=== PATIENT | male | born 1970 ===

== ENCOUNTER 2021-08-02 09:51 | Outpatient (REF) | payer OTHER, SELFPAY ==
[2021-08-02 10:21] LABS: MANUAL DIFF FLAG NO
[2021-08-02 10:44] LABS: Basophils Absolute Auto 0.1 X10*3/uL (0.0-0.2); Basophils Percent Auto 0.7 % (0-2); Eosinophils Absolute Auto 0.4 X10*3/uL (0.0-0.4); Eosinophils Percent Auto 4.5 % (0-4); Hematocrit 49.8 % (42.0-52.0); Hemoglobin 16.8 g/dl (14.0-18.0); Imm Gran Abs Auto 0.09 X10*3/uL (0.00-0.03); Lymphocytes Absolute Auto 2.1 X10*3/uL (1.2-4.9); Lymphocytes Percent Auto 23.1 % (20-40); Mean Corpuscular HGB Conc 33.7 g/dl (31.0-36.0); Mean Corpuscular Hemoglobin 31.2 pg (27.0-33.0); Mean Corpuscular Volume 92.6 fL (80.0-98.0); Mean Platelet Volume 10.9 fL (9.4-12.4); Monocytes Absolute Auto 0.8 X10*3/uL (0.1-1.2); Monocytes Percent Auto 8.6 % (2-11); Neutrophils Absolute Auto 5.5 x10*3/uL (2.0-8.3); Neutrophils Percent Auto 62.1 % (45-73); Platelet Count 191 X10*3/uL (160-400); Red Blood Count 5.38 X10*6/uL (4.60-5.80); Red Cell Distribution Width 12.9 % (11.0-16.0); White Blood Count 8.9 X10*3/uL (4.8-10.8)
[2021-08-02 10:57] LABS: Estimated Average Glucose 114 mg/dL; Hemoglobin A1C 164.8663 umol/L; Hemoglobin A1c % 5.6 %
[2021-08-02 11:08] LABS: Anion Gap 11 (12-20); Blood Urea Nitrogen 14 mg/dL (9-16); Calcium 9.8 mg/dL (8.4-10.2); Carbon Dioxide 29 mmol/L (22-29); Chloride 103 mmol/L (96-108); Cholesterol 230 mg/dL; Estimated Glomerular Filt Rate > 60; Glucose Fasting 102 mg/dL (60-99); HDL Cholesterol 45 mg/dL; LDL Cholesterol Calculated 131 mg/dl; Potassium 4.7 mmol/L (3.3-5.1); Sodium 138 mmol/L (135-145); Triglycerides 273 mg/dL
[2021-08-02 11:32] LABS: Prostate Specific Antigen Scr 0.29 ng/mL (<0.05-4.0); TSH reflex Free T4 1.16 uIU/mL (0.32-4.0)
[2021-08-02 11:40] LABS: Folate > 20.0 ng/mL (> or = 4.0); Vitamin B12 965 pg/mL (200-900)
[2021-08-07 13:13] LABS: Vitamin D 25-OH, D2 <4 ng/mL; Vitamin D 25-OH, D3 18 ng/mL; Vitamin D 25-OH, Total 18 ng/mL (30-100)
[2021-08-07 17:36] LABS: Testosterone, Free 59.3 pg/mL (35.0-155.0); Testosterone, Total 385 ng/dL (250-1100)
== END 2021-08-02 09:52 | disposition home or self-care (01) ==
LOC: HO.LAB 09:51
PROVIDERS: PCP Nurse Practitioner Acute Care; Visit Provider Nurse Practitioner Acute Care
DX: Z12.5 Encounter for screening for malignant neoplasm of prostate (principal); E29.1 Testicular hypofunction
CPT/HCPCS: 36415; 80048; 80061; 82306; 82607; 82746; 83036; 84153; 84402; 84403; 84443; 85025

== ENCOUNTER 2021-10-24 10:07 | Outpatient (REF) | payer OTHER, SELFPAY ==
--- NOTE | ~2021-10-24 | XR_ITS ---
EXAMINATION: XR LUMBOSACRAL SPINE WITH OBLIQUES CLINICAL INFORMATION: Low back pain COMPARISON: None TECHNIQUE: AP, both oblique, and lateral views of the lumbar spine. Lateral view of the lumbosacral junction. FINDINGS: Bone alignment is normal. No fracture or dislocation is seen. There is mild degenerative disc disease at L1-L2. Disc spaces are otherwise normal. There is lower lumbar spine facet arthritis. No pars defect is seen. XR/XR lumbar spine 6V w bending IMPRESSION: Mild degenerative disc disease at L1-L2 and lower lumbar spine facet arthritis.
--- NOTE | 2021-10-24 10:13 | ECG_ITS ---
Test Reason : CHEST PAIN Blood Pressure : / mmHG Vent. Rate : 065 BPM Atrial Rate : 065 BPM P-R Int : 164 ms QRS Dur : 094 ms QT Int : 418 ms P-R-T Axes : 043 -01 016 degrees QTc Int : 434 ms Normal sinus rhythm Inferior infarct , age undetermined Abnormal ECG No previous ECGs available Referred By: Tanna Lopez Electronically Signed By:Irving Charles
== END 2021-10-24 10:08 | disposition home or self-care (01) ==
LOC: HO.XRAY 10:07
PROVIDERS: Absent Provider Nurse Practitioner Family; PCP Nurse Practitioner Acute Care; Visit Provider Nurse Practitioner Acute Care
DX: R07.9 Chest pain, unspecified (principal); M54.50 Low back pain, unspecified; M79.606 Pain in leg, unspecified
CPT/HCPCS: 72114; 93005

== ENCOUNTER → 2021-11-28 09:07 | Outpatient (REF) | payer OTHER, SELFPAY ==
--- NOTE | 2021-11-28 09:14 | CA_ITS ---
Acquisition Time: 2021-11-28 09:28:18 Total Exercise Time: 00:08:14 Test Indications: Chest Pain Medications: SEE H Protocol: MT Max HR: 148 BPM 87% of Pred: 170 BPM Max BP: 182/078 mmHG Max Work Load: 10.1 METS Exercise stress test with exercise 8 min 14 sec of Mt protocol, achieving 87% MPHR, 10.1 METs, with mild sob, no chest discomfort, with isolated PACs, with normotensive response to exercise, without EKG changes meeting criteria for ischemia. Test reviewed with Dr Gentile. Referred By: Tanna Lopez Overread By: FRIDA AYERS
== END ==
LOC: HO.CARD 09:07
PROVIDERS: PCP Nurse Practitioner Acute Care; Visit Provider Nurse Practitioner Family
DX: R07.9 Chest pain, unspecified (principal)
CPT/HCPCS: 93017

== ENCOUNTER → 2021-12-06 14:38 | Outpatient (REF) | payer OTHER, SELFPAY ==
--- NOTE | 2021-12-06 14:40 | CA_ITS ---
Transthoracic Echocardiogram Patient (Last, First, Middle): Ambrose Leslie, Gender: Male Date of : 1970 Age: 51 Procedure Date: 12/06/2021 Procedure Type: Transthoracic Echocardiogram Location: OP Height: 170.18 cm Weight: 100.25 kg BSA: 2.11 m2 Heart Rate: bpm BP: 134 / 72 mmHg Mill Work: SREEDHAR Chiu MD: Tanna TROY Home Planning Consultant Salesperson: Fabian Suárez MD Symptoms: R07.9 - Chest pain, unspecified Study Quality: Fair ECG Rhythm: Sinus Conclusions: - Essentially normal study Findings Left Ventricle Normal left ventricular size, thickness, and systolic function. The visually estimated ejection fraction is between 60-65%. Spectral Doppler is indicative of a normal filling pattern. Right Ventricle Normal right ventricular cavity size and systolic function. Atria Both atria are normal in size. There is no evidence of interatrial shunt. Aortic Valve Normal aortic valve structure and function. There is no aortic valve stenosis. There is no aortic valve regurgitation. Mitral Valve Normal mitral valve structure and function. There is trace mitral valve regurgitation. There is no mitral valve stenosis. Pulmonic Valve The pulmonic valve is likely normal. Tricuspid Valve Normal tricuspid valve structure. There is trace tricuspid valve regurgitation. The right ventricular systolic pressure is normal. The right ventricular systolic pressure is 21 mmHg. Normal right atrial pressure. There is no evidence of pulmonary hypertension. Great Vessels All visible segments of the aorta are normal in size. The pulmonary artery was not well visualized. Venous The inferior vena cava is normal in size and collapses greater than 50% with inspiration. Pericardium/Pleural There is no evidence of pericardial effusion. Prior Study Comparison No prior study available for comparison. Measurements 2D Linear Measurements IVSd: 1.04 0.6-0.9/0.6-1.0 cm LVIDd: 4.75 3.9-5.3/4.2-5.9 cm LVIDd Index: 2.25 2.4-3.2/2.2-3.1 cm/m2 LVIDs: 2.83 2.0-3.6 cm LVPWd: 1.01 0.7-1.1 cm LA Diam: 3.10 2.7-3.8/3.0-4.0 cm LAIDs Index: 1.47 1.5-2.3 cm/m2 LV Mass: 215.55 67-162/88-224 g LV Mass Index: 102.16 43-95/49-115 g/m2 LVOT Diam: 2.20 3.0+(-)1.3 cm 2D Systolic Function EF 4C: 67.10 >55% EF 2C: 62.40 >55% EF BiP: 65.80 >55% Mitral Valve MV Pk E: 0.69 MV PK A: 0.63 MV Decel Time: 302.00 E/A: 1.10 E'Lateral: 8.05 E'Medial: 5.55 E/E' Med: 12.50 E/E' Lat: 8.60 PHT: 88.00 MVA PHT: 2.50 Decel Camp: 2.29 Aortic Valve AoV Pk Richie: 1.23 AoV Mn Richie: 0.82 AoV VTI: 0.23 AoV Pk Grad: 6.00 Aov Mn Grad: 3.00 JORDY Cont.VTI: 3.28 LVOT LVOT Pk Richie: 0.95 LVOT Mn Richie: 0.64 LVOT VTI: 0.20 LVOT Pk Grad: 4.00 LVOT Mn Grad: 2.00 LVOT Diam: 2.20 LVOT Area: 3.80 Diastolic Function MV Pk E: 0.69 MV Pk A: 0.63 E/A: 1.10 E'Medial: 5.55 E/E' Med: 12.50 E' Laterial: 8.05 E/E' Lat: 8.60 Right Ventricle TAPSE (mm): 20.00 TVS' Richie: 13.60 Tricuspid Valve TR Pk Richie: 1.79 TR Pk Grad: 13.00 RA Press: 8.00 RVSP: 21.00 Great Vessels Aorta Sinus of Valsalva: 3.95 2.0-3.[address] Ridge: 3.42 1.7-3.4 cm Ao Asc: 3.90 2.1-3.4 cm Ao Arch: 3.20 Updated in Other Vendor System with Status of Final Fabian Suárez MD electronically signed on 12/07/2021 5:15:52 PM with status of Final
== END ==
LOC: HO.CARD 14:38
PROVIDERS: PCP Nurse Practitioner Acute Care; Visit Provider Nurse Practitioner Family
DX: R07.9 Chest pain, unspecified (principal)
CPT/HCPCS: 93306

== ENCOUNTER 2022-01-25 12:50 | Outpatient (REF) | payer OTHER, SELFPAY ==
[2022-01-28 17:56] LABS: TS Negative Control Passed; TS Panel A 2; TS Panel B 4; TS Positive Control Passed; TSpotTB Negative (Negative)
== END 2022-01-25 12:51 | disposition home or self-care (01) ==
LOC: HO.LAB 12:50
PROVIDERS: Visit Provider Nurse Practitioner Family
DX: Z11.1 Encounter for screening for respiratory tuberculosis (principal)
CPT/HCPCS: 36415; 86481

== ENCOUNTER 2022-03-09 09:18 | Outpatient (RCR) | payer OTHER, SELFPAY ==
[2022-03-09 09:30] VITALS: BP 142/83; PULSE 68
--- NOTE | 2022-03-09 10:27 | MHC.PT.EP ---
[facility] [place] Office [place] Office [place] Office [address] Kelby Hallman [address] [phone] F: [phone] F: [phone] F: [phone] F: [phone] Physical Therapy Plan of Care Date of Evaluation: Date of Surgery: Diagnosis: DIZZINESS AND GIDDINESS (KP) Assessment: Ambrose presents today with c/o intermittent dizziness. Upon exam he demonstrates s/s consistent with right posterior canalithiasis. Following CRM he tests negative. Upon exam, impairments include increased sensation of dizziness, decreased ability to perform transfers with ease and speed. Functional limitations include decreased tolerance to rolling, sitting or laying quickly, driving and playing video games. Frequency and Duration: The patient will be seen 2 x week for 3 weeks Short Term Goals: 1. Pt will be (-) for nystagmus of reports of vertigo in all diagnostic directions B to resolutions of BPPV in 2 weeks [facility] Goals: 1. Pt will be (-) for nystagmus of reports of vertigo in all diagnostic directions B to resolutions of BPPV in 2 weeks 3 weeks: 1. I with HEP 2. Improve DGI to 20/24 3. Pt to be able to functionally move in all planes without provocation of dizziness and return to PLOF in 4 weeks 4. Pt to be educated on sx and indications to return to therapy when needed Treatment Plan: Modalities to reduce pain, spasms and effusion. Manual therapy to restore motion and function. Therapeutic exercise to improve strength and flexibility. Neuromuscular re-education for posture and balance. Therapeutic activities to return to functional activities of daily living. Electronically signed by: Marta Sr PT, DPT Please sign and return to therapist. Thank you for your referral.
== END 2022-04-06 15:20 | disposition home or self-care (01) ==
LOC: HO.PT 09:18
PROVIDERS: Visit Provider Nurse Practitioner Family
DX: R42 Dizziness and giddiness (principal)
CPT/HCPCS: 95992; 97161

== ENCOUNTER → 2022-03-30 13:42 | Outpatient (BNVA) | payer OTHER, SELFPAY | PROVIDERS: PCP Nurse Practitioner Acute Care; Referring Provider Nurse Practitioner Acute Care; Visit Provider Nurse Practitioner | DX: Z01.818 Encounter for other preprocedural examination (principal); Z80.0 Family history of malignant neoplasm of digestive organs | CPT/HCPCS: 99202; 99212 ==

== ENCOUNTER → 2022-04-12 13:57 | Outpatient (BNVA) | payer OTHER, SELFPAY | PROVIDERS: PCP Nurse Practitioner Acute Care; Referring Provider Nurse Practitioner Family; Visit Provider Internal Medicine | DX: Z01.810 Encounter for preprocedural cardiovascular examination (principal); R07.9 Chest pain, unspecified | CPT/HCPCS: 93005; 99202 ==

== ENCOUNTER → 2022-06-01 15:41 | Outpatient (BNVA) | payer OTHER, SELFPAY | PROVIDERS: PCP Nurse Practitioner Family; Visit Provider Urology | DX: N52.9 Male erectile dysfunction, unspecified (principal) | CPT/HCPCS: 99202 ==

== ENCOUNTER 2022-06-14 10:43 | Day surgery (SDC) | payer OTHER, SELFPAY ==
[2022-06-08 11:21] VITALS: BMI 33.4
--- NOTE | 2022-06-12 14:54 | HO.ANESPROP2 ---
Documented by User: Tara Broussard NP 06/12/22 14:56 HPI - Anesthesia Eval Consult details Narrative: 52yo M for Colonoscopy Cardiac cleared [facility] Active Problems Active Problems: All Active Problems (Updated 06/01/22 @ 16:17 by Merritt Lechuga MD) Erectile dysfunction (Acute) Preoperative cardiovascular examination (Acute) Family history of colon cancer (Acute) Pre-op examination (Acute) Failed vision screen (Acute) Screening for colon cancer (Acute) Adult general medical exam (Acute) Vertigo (Acute) Tinnitus, right ear (Acute) Dizziness (Acute) Upper back pain on right side (Acute) Intermittent chest pain (Acute) Hypertension (Acute) Vitamin D insufficiency (Acute) Obesity (BMI 30-39.9) (Acute) Borderline hypertension (Acute) Musculoskeletal back pain (Acute) Moderate major depression, single episode (Acute) Generalized anxiety disorder (Acute) Hypogonadism in male (Acute) Low back pain radiating down leg (Acute) Hyperlipidemia (Acute) Past Medical History Medical History Cough with exposure to COVID-19 virus Family History Family History Mother Diabetes Hypertension Rheumatoid arthritis Father Dementia Cancer Maternal Grandfather Prostate CA Maternal Aunt Stomach cancer Surgical History Surgical History History of pneumothorax Social History Social History Housing: House Alcohol intake: current Alcohol intake frequency: a few times a week Alcohol type: beer Patient Tobacco Use Status: Current someday Tobacco user Tobacco use type: Cigarette Cigarettes Per Day: 8 Years Smoked: 3 e-Cigarette/Vaping Use: Never Used Second Hand Smoke Exposure: No Use of substances other than those prescribed or required for medical reasons: No Are you DNR?: No Advance Directives: No Advance Directives Information Provided: Yes service: No Current occupational status: unemployed Cognitive needs: No Hearing needs: No Vision needs: No Meds Allergies Allergy/AdvReac Type Severity Reaction Status Date / Time No Known Allergies Allergy Verified 04/12/22 14:07 Home Medications Medication Instructions Recorded Confirmed Last Taken Type ibuprofen 800 mg tablet 800 mg PO .qhs PRN 03/30/22 04/12/22 Unknown History lisinopril 5 mg tablet 5 mg PO DAILY 04/12/22 04/12/22 Unknown History Exam Exam Date and Time: June 12, 2022 1454 Height,Weight and Vital Signs: Height 5 ft 8 in Weight 99.79 kg Narrative Narrative: EKG 04/2022 sinus rhythm at 87/Min; no significant ST-T changes and otherwise unremarkable.? Normal IA and corrected QT Echo 12/2021 Conclusions: - Essentially normal study ? Exercise Stress 11/2021 Protocol: ARNALDO ? Max HR: 148 BPM? 87% of? Pred: 170 BPM Max BP: 182/078 mmHG Max Work Load: 10.1 METS ? Exercise stress test with exercise 8 min 14 sec of Arnaldo protocol, achieving 87% ?MPHR, 10.1 METs, with mild sob, no chest discomfort, with isolated PACs, with ?normotensive response to exercise, without EKG changes meeting criteria for ?ischemia. Test reviewed with Dr Gentile.? Assessment and Plan Assessment Anesthesia Assessment: Chart Reviewed Documented by User: Kimberly Kumar MD 06/14/22 12:29 [facility] Past Medical History Medical History Cough with exposure to COVID-19 virus Family History Family History Mother Diabetes Hypertension Rheumatoid arthritis Father Dementia Cancer Maternal Grandfather Prostate CA Maternal Aunt Stomach cancer Surgical History Surgical History History of pneumothorax History of Problems with Anesthesia: No Social History Social History Housing: House Alcohol intake: current Alcohol intake frequency: a few times a week Alcohol type: beer Patient Tobacco Use Status: Current someday Tobacco user Tobacco use type: Cigarette Cigarettes Per Day: 8 Years Smoked: 3 e-Cigarette/Vaping Use: Never Used Second Hand Smoke Exposure: No Use of substances other than those prescribed or required for medical reasons: No Are you DNR?: No Advance Directives: No Advance Directives Information Provided: Yes service: No Current occupational status: unemployed Cognitive needs: No Hearing needs: No Vision needs: No Meds Allergies Allergy/AdvReac Type Severity Reaction Status Date / Time No Known Allergies Allergy Verified 04/12/22 14:07 Home Medications Medication Instructions Recorded Confirmed Last Taken Type ibuprofen 800 mg tablet 800 mg PO .qhs PRN 03/30/22 04/12/22 Unknown History lisinopril 5 mg tablet 5 mg PO DAILY 04/12/22 04/12/22 Unknown History Exam Airway Mallampati Class: II TM Dist: >3cm Neck ROM: Full Loose/Missing/Broken Teeth: No Heart: RRR Lungs: CTA Assessment and Plan Assessment Anesthesia Assessment: Anesthesia Plan Discussed Final Anesthetic Review History of Problems with Anesthesia: No NPO: Yes ASA Class: II Final Preanesthetic Review: Meds/Allgs Chart Reviewed, Consent Obtained/Reviewed and Anes Risks/Benef Reviewed Patient Risk: Low Procedure Risk: Low Anesthetic Plan Anesthetic Plan: MAC: Disposition: Standard PACU
[2022-06-14 12:05] VITALS: BP 129/66; PULSE 71; RESP 16; TEMP 36.6; O2SAT 97
[2022-06-14] MEDS: Lactated Ringers 1,000 ML 100 ML IVCONT (12:15)
--- NOTE | 2022-06-14 12:32 | MHC.SHP ---
Pre-Procedural Eval Section A Date of Service: 06/14/22 Section B Chief Complaint: Screening Details of Present Illness: 52 y.o M with fam hx of polyps but not advanced adenomas, fam hx of CRC in grandfather Relevant Social History: Tobacco Use Medical History: Significant History (Hypertension High cholesterol Obesity Male hypogonadism Vertigo Depression/anxiety Tinnitus right ear Low back pain with radiculopathy History of pneumothorax) History of Previous Operations: Relevant previous surgery/procedure and date(s) (Pneumothorax repair ) Allergies: Allergies Allergy/AdvReac Type Severity Reaction Status Date / Time No Known Allergies Allergy Verified 04/12/22 14:07 Review of Systems Review of Systems Comment: 10 point ROS negative except as noted above Exam Exam Comment: Gen appear: No acute distress, well nourished HEENT: no icterus Chest: No overt resp distress Abd: soft, nontender, nondistended Psych: Stable affect, answering questions appropriately Neuro: A/Ox3 noted to move all extremities spontaneously Ext: no peripheral edema Plan Diagnosis/Plan: Unchanged I have reviewed the history and physical and performed a pertinent physical examination on my patient. No changes have occurred unless specified.
--- NOTE | 2022-06-14 13:06 | P.OP_ITS ---
Operative Note Operative Note Date of Service: 06/14/22 Narrative: Procedure: Colonoscopy Indication: Screening Endoscopist: Jeanette Wasserman MD Anesthesia Provider: Dr Kimberly Kumar Anesthesia type: MAC Instrument: Olympus [id number]-[id number] Consent: Indication, risks vs benefits, and alternatives were discussed with the patient who gave written informed consent to proceed. EKG, pulse, pulse oximetry and blood pressure were monitored throughout the procedure. Please see anesthesia flowsheet. Procedure: The patient was brought to the procedure room and placed in the left lateral decubitus position. IV medications were administered by the anesthesia provider in attendance. A digital rectal exam was performed which was normal. The colonoscope was then inserted through the anus and advanced through the colon to the cecum at 75 cm. Mucosa was carefully examined under high definition white light as the instrument was slowly withdrawn in a retrograde panoramic fashion. Retroflexion was performed in ascending colon and rectum. The procedure was not difficult. There were no immediate obvious complications. The quality of the prep was BBPS: 3+3+2 = adequate Withdrawal time 14 minutes. Limitations: No limitations. Findings: Mucosa: Normal to cecum. Protruding lesions: * 1 sessile polyp of size 3 mm in ascending colon. Cold snare polypectomy was performed. The polyp was completely removed and retrieved. * 1 sessile polyp of size 8 mm in transverse colon. Cold snare polypectomy was performed. The polyp was completely removed and retrieved. * 1 sessile polyp of size 7 mm in sigmoid colon. Cold snare polypectomy was performed. The polyp was completely removed and retrieved. * Small internal hemorrhoids without stigmata of recent bleeding. Impression: 1. Normal colon mucosa 2. Total of 3 polyps removed from ascending, transverse, and sigmoid colon. 3. Internal hemorrhoids Recommendations: - Follow path results. - Repeat colonoscopy in 3 years if all polyps are adenomas.
[2022-06-14 13:11] VITALS: BP 90/55; PULSE 68; RESP 68; TEMP 36.2; O2SAT 99
[2022-06-14 13:26] VITALS: BP 109/62; PULSE 65; RESP 16; O2SAT 99
[2022-06-14 13:41] VITALS: BP 111/71; PULSE 80; RESP 16; TEMP 36.2; O2SAT 100
== END 2022-06-14 14:48 | disposition home or self-care (01) ==
PROVIDERS: PCP Internal Medicine; Visit Provider Internal Medicine
PROC: 0DJD8ZZ Inspection of Lower Intestinal Tract, Via Natural or Artificial Opening Endoscopic (ICD-10-PCS; CPT 45378; principal; 2022-06-14 12:10)
DX: Z12.11 Encounter for screening for malignant neoplasm of colon (principal); Z80.0 Family history of malignant neoplasm of digestive organs; D12.2 Benign neoplasm of ascending colon; D12.3 Benign neoplasm of transverse colon; K63.5 Polyp of colon; K64.8 Other hemorrhoids; K59.00 Constipation, unspecified; K21.9 Gastro-esophageal reflux disease without esophagitis; I10 Essential (primary) hypertension; E78.00 Pure hypercholesterolemia, unspecified; E29.1 Testicular hypofunction; E66.9 Obesity, unspecified; Z68.33 Body mass index [BMI] 33.0-33.9, adult; F41.1 Generalized anxiety disorder; F17.210 Nicotine dependence, cigarettes, uncomplicated; Z79.899 Other long term (current) drug therapy
CPT/HCPCS: 45385; 88305

== ENCOUNTER → 2022-07-03 14:37 | Outpatient (BNVA) | payer OTHER, SELFPAY | PROVIDERS: PCP Internal Medicine; Visit Provider Nurse Practitioner | DX: D12.6 Benign neoplasm of colon, unspecified (principal); Z80.0 Family history of malignant neoplasm of digestive organs | CPT/HCPCS: 99212 ==

== ENCOUNTER → 2022-08-28 14:42 | Outpatient (BNVA) | payer OTHER, SELFPAY | PROVIDERS: PCP Internal Medicine; Visit Provider Nurse Practitioner | DX: N52.9 Male erectile dysfunction, unspecified (principal); K64.9 Unspecified hemorrhoids; D12.6 Benign neoplasm of colon, unspecified; Z80.0 Family history of malignant neoplasm of digestive organs | CPT/HCPCS: 99212 ==

== ENCOUNTER → 2022-09-11 15:25 | Outpatient (BNVA) | payer OTHER, SELFPAY | PROVIDERS: PCP Internal Medicine; Visit Provider Internal Medicine | DX: K64.9 Unspecified hemorrhoids (principal); J06.9 Acute upper respiratory infection, unspecified | CPT/HCPCS: 99212 ==

== ENCOUNTER 2022-09-19 08:13 | Outpatient (REF) | payer OTHER, SELFPAY ==
--- NOTE | ~2022-09-19 | XR_ITS ---
EXAMINATION: XR CHEST CLINICAL INFORMATION: Cough. COMPARISON: None TECHNIQUE: 2 views of the chest were obtained. FINDINGS: The cardiomediastinal silhouette is stable. The lungs are well expanded. Airway wall thickening and increased interstitial markings. No consolidation or effusion. Mild endplate degenerative changes in the spine. XR/XR chest 2V IMPRESSION: Nonspecific increased interstitial markings and airway wall thickening. This may represent an acute versus chronic bronchitis. No focal consolidative pneumonia.
--- NOTE | 2022-09-19 08:17 | ECG_ITS ---
Test Reason : CHEST PAIN Blood Pressure : / mmHG Vent. Rate : 085 BPM Atrial Rate : 085 BPM P-R Int : 158 ms QRS Dur : 088 ms QT Int : 370 ms P-R-T Axes : 046 -04 025 degrees QTc Int : 440 ms Normal sinus rhythm Inferior infarct (cited on or before 24-OCT-2021) Abnormal ECG When compared with ECG of 24-OCT-2021 10:19, No significant change was found Referred By: Yue Beyer Electronically Signed By:Irving Charles
[2022-09-19 09:21] LABS: Alanine Aminotransferase 25 U/L (0-40); Albumin Level 4.4 g/dL (3.5-5.0); Alkaline Phosphatase 126 U/L (39-117); Anion Gap 15 (12-20); Aspartate Amino Transferase 27 U/L (5-37); Bilirubin Total 0.5 mg/dL (0.0-1.0); Blood Urea Nitrogen 12 mg/dL (9-16); Calcium 9.6 mg/dL (8.4-10.2); Carbon Dioxide 26 mmol/L (22-29); Chloride 105 mmol/L (96-108); Cholesterol 300 mg/dL; Estimated Glomerular Filt Rate > 60; Glucose Fasting 126 mg/dL (60-99); HDL Cholesterol 54 mg/dL; LDL Cholesterol Calculated 194 mg/dl; Potassium 5.2 mmol/L (3.3-5.1); Sodium 141 mmol/L (135-145); Total Protein 7.6 g/dL (6.5-8.0); Triglycerides 262 mg/dL
[2022-09-19 09:40] LABS: Vitamin D 25-OH Total 22.2 ng/mL (>30)
== END 2022-09-19 08:14 | disposition home or self-care (01) ==
LOC: HO.XRAY 08:13
PROVIDERS: Absent Provider Nurse Practitioner Family; PCP Nurse Practitioner Family; Visit Provider Nurse Practitioner Family
DX: R07.9 Chest pain, unspecified (principal); E55.9 Vitamin D deficiency, unspecified; E78.5 Hyperlipidemia, unspecified; R03.0 Elevated blood-pressure reading, without diagnosis of hypertension; R05.9 Cough, unspecified
CPT/HCPCS: 36415; 71046; 80053; 80061; 82306; 93005

== ENCOUNTER 2022-09-26 11:48 | Outpatient (REF) | payer OTHER, SELFPAY ==
[2022-09-26 12:42] LABS: Influenza A PCR NEGATIVE (Negative); Influenza B PCR NEGATIVE (Negative); Resp Syncy Virus RNA Qual PCR NEGATIVE (Negative); SARS COV2 PCR INHOUSE NEGATIVE (Negative)
== END 2022-09-26 11:49 | disposition home or self-care (01) ==
LOC: HO.LAB 11:48
PROVIDERS: PCP Nurse Practitioner Family; Visit Provider Nurse Practitioner Family
DX: Z20.822 Contact with and (suspected) exposure to COVID-19 (principal); R50.9 Fever, unspecified
CPT/HCPCS: 0241U

== ENCOUNTER 2022-10-12 10:17 | Outpatient (REF) | payer OTHER, SELFPAY ==
[2022-10-12 12:27] LABS: Estimated Average Glucose 120 mg/dL; Hemoglobin A1c % 5.8 %
[2022-10-12 12:30] LABS: Anion Gap 16 (12-20); Blood Urea Nitrogen 10 mg/dL (9-16); Calcium 9.1 mg/dL (8.4-10.2); Carbon Dioxide 24 mmol/L (22-29); Chloride 102 mmol/L (96-108); Estimated Glomerular Filt Rate > 60; Glucose Random 104 mg/dL (60-115); Potassium 4.5 mmol/L (3.3-5.1); Sodium 137 mmol/L (135-145)
== END 2022-10-12 10:18 | disposition home or self-care (01) ==
LOC: HO.LAB 10:17
PROVIDERS: PCP Nurse Practitioner Family; Visit Provider Nurse Practitioner Family
DX: E87.5 Hyperkalemia (principal); R73.01 Impaired fasting glucose; E78.5 Hyperlipidemia, unspecified
CPT/HCPCS: 36415; 80048; 83036

== ENCOUNTER → 2023-02-06 11:39 | Outpatient (BNVA) | payer OTHER, SELFPAY | PROVIDERS: PCP Nurse Practitioner Family; Visit Provider Anesthesiology | DX: M54.50 Low back pain, unspecified (principal); M54.2 Cervicalgia; M47.816 Spondylosis without myelopathy or radiculopathy, lumbar region; G89.4 Chronic pain syndrome | CPT/HCPCS: 99202 ==

== ENCOUNTER 2023-04-02 06:04 | Outpatient (REF) | payer OTHER, SELFPAY ==
--- NOTE | ~2023-04-02 | FL_ITS ---
EXAMINATION: XR FLUOROSCOPY WITH IMAGES CLINICAL INFORMATION: Spondylosis . COMPARISON: X-ray lumbar spine 10/24/2021. TECHNIQUE: Fluoroscopy Supervised By: Dr. Thornton. Fluoroscopy Time: 0.6 minutes. Cumulative Dose: 10.1 mGy. DAP: 0.175 Gycm2. Images: 6. FL/FL guidance in treatment room FINDINGS/IMPRESSION: First fluoroscopic image demonstrates surgical marker with radiopaque contrast on the right side at the level of L5-S1. Second fluoroscopic image demonstrates surgical marker with radiopaque contrast on the left side at the level of L5-S1. Third and fourth fluoroscopic images demonstrates radiopaque contrast on the left at the level of L3-L4 and L4-L5. Fifth and sixth fluoroscopic images demonstrates additional radiopaque contrast on the right at the level of L3-L4 and L4-L5. A radiologist was not present during this procedure. Recommend correlation with intraoperative report for additional details.
== END 2023-04-02 06:05 | disposition home or self-care (01) ==
LOC: CF 06:04
PROVIDERS: Visit Provider Anesthesiology
DX: M47.816 Spondylosis without myelopathy or radiculopathy, lumbar region (principal); M54.50 Low back pain, unspecified; M54.2 Cervicalgia; G89.4 Chronic pain syndrome
CPT/HCPCS: 64493; 64494

== ENCOUNTER 2023-04-02 14:31 | Outpatient (AMB) | payer OTHER, SELFPAY ==
[2023-04-02 14:55] VITALS: BP 128/76; BP 138/68; PULSE 96; PULSE 99; RESP 17; O2SAT 96; O2SAT 98; BMI 32.8
--- NOTE | 2023-04-02 14:55 | A.OFFVIS_ITS ---
Intake Vital Signs 04/02/23 14:55 04/02/23 14:55 Height 5 ft 8 in 5 ft 8 in Weight 216 lb 216 lb BMI 32.8 32.8 BP 138/68 128/76 Blood Pressure Location Lt brachial Rt brachial Position Supine Sitting Respiration 17 17 Pulse 99 96 Pulse Source Pulse Oximeter Pulse Oximeter Pulse Oximetry (%) 96 98 Oxygen Delivery Method Room Air Room Air Comment pre-op post-op Intake Visit Reasons: BILATERAL DIAGNOSTIC L3, L4, DRL5 MBB Allergies No Known Allergies Allergy (Verified 04/02/23 14:55) PFSH Medical History Chest pain Cough Cough with exposure to COVID-19 virus Screening for colon cancer Surgical History H/O colonoscopy History of pneumothorax Family History Mother Diabetes Hypertension Rheumatoid arthritis Father Dementia Cancer Maternal Grandfather Prostate CA Maternal Aunt Stomach cancer Social History Housing: House Alcohol intake: current Alcohol intake frequency: a few times a week Alcohol type: beer Patient Tobacco Use Status: Current someday Tobacco user Tobacco use type: Cigarette Cigarettes Per Day: 8 Years Smoked: 3 e-Cigarette/Vaping Use: Never Used Second Hand Smoke Exposure: No service: No Current occupational status: unemployed Cognitive needs: No Hearing needs: No Vision needs: No Physical Exam Vital Signs: Last Vital Signs Pulse 96 04/02/23 14:55 Resp 17 04/02/23 14:55 BP 128/76 04/02/23 14:55 Pulse Ox 98 04/02/23 14:55 Oxygen Delivery Method Room Air 04/02/23 14:55 BMI result Body Mass Index 32.8 Assessment & Plan Assessment & Plan (1) Cervicalgia: Code(s): M54.2 - Cervicalgia (2) Low back pain: Code(s): M54.50 - Low back pain, unspecified (3) Spondylosis of lumbar region without myelopathy or radiculopathy: Code(s): M47.816 - Spondylosis without myelopathy or radiculopathy, lumbar region Plan: Diagnostic medial branch block L3,L4 dorsal ramus L5 bilateral.? ? ?Informed consent was explained to the patient. All questions were explained and? answered.? The patient was taken inside the operating room where she was positioned prone on the operating table. Time-out was performed delineating correct site, side, the nature of the procedure, patient's allergy, . All operating room staff was participating in OR time-out procedure. ? ? The lower back was prepped with ChloraPrep and draped with sterile towels.? C- arm was brought over the operating field and sq picture of L4-, L5 vertebra and S1 AREA were delineated on the screen.? Point of interest were delineated as confluence of superior articular process of L4 and L5 vertebra bilaterally with corresponding transverse processes as well as confluence of the sacral alae bilaterally with superior articular process of S1.? The projection of the point of interest to the skin were injected with the small amount of local anesthetic lidocaine 2% 1-1.5 cc.? After that 22 gauge 3.5 inch spinal needle was driven sequentially to the points of interest in tunnel vision fashion. After needles gently contacted the bone at the point of interests the needle was injected with small amount of the contrast.? The injection of the contrast did not demonstrate any intravascular or intrathecal spread of the contrast.? After that injection of the? ropivacaine 0.5%-1cc was performed at each needle location.??after that the needles were removed and Bandaids were applied. ? Upon completion of the injections? needle was? removed and sterile Band-Aids were applied.? The patient tolerated procedure very well. (4) Arthropathy of lumbar facet joint: Code(s): M47.816 - Spondylosis without myelopathy or radiculopathy, lumbar region (5) Chronic pain syndrome: Code(s): G89.4 - Chronic pain syndrome Plan Looks like a major pain generator for this patient is spondylosis of the lumbar spine. I offered him and he agreed to go for diagnostic medial branch block L3- L4 dorsal ramus L5. I will schedule him for this procedure without sedation. Also complains on pain in the neck cervicalgia. I will send him for x-ray of the cervical spine. I will see this patient on the follow-up appointment after the diagnostic injection and at the same time will review the results of the cervical x-ray. Orders: Orders FL guidance in treatment room 04/02/23 M47.816 - Spondylosis without myelopathy or radiculopathy, lumbar region Coding Level of Care Code Procedure Only Diagnoses Cervicalgia M54.2 Low back pain M54.50 Spondylosis of lumbar region without myelopathy or radiculopathy M47.816 Arthropathy of lumbar facet joint M47.816 Chronic pain syndrome G89.4
== END 2023-04-02 15:23 | disposition home or self-care (01) ==
PROVIDERS: PCP Nurse Practitioner Family; Visit Provider Anesthesiology
DX: G89.4 Chronic pain syndrome (principal); M47.816 Spondylosis without myelopathy or radiculopathy, lumbar region
CPT/HCPCS: 64493; 64494

== ENCOUNTER → 2023-04-10 13:12 | Outpatient (BNVA) | payer MEDICAID, SELFPAY | PROVIDERS: PCP Nurse Practitioner Family; Visit Provider Anesthesiology ==

== ENCOUNTER 2023-06-10 13:19 | Outpatient (AMB) | payer OTHER, SELFPAY ==
--- NOTE | 2023-06-10 13:43 | A.OFFVIS_ITS ---
Intake Vital Signs 06/10/23 13:51 Height 5 ft 8 in Weight 220 lb BMI 33.4 BP 133/74 Blood Pressure Location Lt brachial Position Sitting Respiration 16 Pulse 72 Pulse Source Pulse Oximeter Pulse Oximetry (%) 97 Oxygen Delivery Method Room Air Intake Visit Reasons: BI DIAG L3,L4,DRL5 MBB/04/02/23, still in pain Allergies No Known Allergies Allergy (Verified 06/10/23 13:51) HPI HPI Comments History of Present Illness Details Ambrose is back in my office after diagnostic medial branch block L3 L4-5 bilateral which was performed on 04/02/2023. He reports that before the procedure he had pain 2 to 3/10. He reported that immediately after the procedure his pain did not change. The next few hours he did not feel much of the pain relieve, he reported even pain aggravation after the procedure. I feel it is necessary to send this patient for evaluation of the MRI. I will send him to the [facility] for this procedure. Prior: very pleasant mostly Bengali-speaking 52 years old gentleman who presents in my office with complains on pain in the lumbar spine as well as pain in the neck. He reports the pain in the lower lumbar spine with radiation to mostly left lower extremity to the level just below the level of the knee but not lower that this level. He admits some radiation into the right hip as well. He denies radiation all the way down to his feet or toes. He reports that he suffers from these pain for many years. He was under care of primary care physician and he complained on this pain for past 10 years. He reports that his pain is a result of continual injury but this was not any job-related since any ruiz. He cannot sleep normally because of his pain he can do activities of daily living he can take care of himself but he cannot function normally. 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 Weather changes in movements aggravates his pain. He received x-ray of the lumbar spine result of which were dictated as below. He went for physical therapy for his pain in the past however he was not able to tolerate physical therapy well. Refuses to go to physical therapy again. He never received any injections. [facility] Medical History Chest pain Cough Cough with exposure to COVID-19 virus Screening for colon cancer Surgical History H/O colonoscopy History of pneumothorax Family History Mother Diabetes Hypertension Rheumatoid arthritis Father Dementia Cancer Maternal Grandfather Prostate CA Maternal Aunt Stomach cancer Social History Housing: House Alcohol intake: current Alcohol intake frequency: a few times a week Alcohol type: beer Patient Tobacco Use Status: Current someday Tobacco user Tobacco use type: Cigarette Cigarettes Per Day: 8 Years Smoked: 3 e-Cigarette/Vaping Use: Never Used Second Hand Smoke Exposure: No service: No Current occupational status: unemployed Cognitive needs: No Hearing needs: No Vision needs: No Review of Systems Const All systems reviewed & are unremarkable except as noted in HPI and below ENT Reports Normal hearing present Neuro Reports Normal hearing present, Denies Abnormal speech present and Denies Sensory deficit (Neuro) Physical Exam Const General: no acute distress Nutritional Appearance: obese (Trivial obesity) Orientation/consciousness: patient oriented x3 Eyes General: appearance normal, both eyes and all related structures Pupils: Equal, round and reactive pupils present EOM: EOMs intact bilaterally Neck Other: Tenderness on palpation in paraspinal spinal region of the cervical spine. Neck: Yes full ROM Chest Chest palpation & inspection: normal inspection of the chest Resp Effort & Inspection: normal respiratory effort, able to speak in complete sentences, normal respiratory pattern, no audible wheezes and no cough Cardio Jugular venous distension: no JVD GI Inspection: Yes normal to inspection Back/Spine/Pelvis Other: Minimal tenderness on palpation on paraspinal and spinal region. Mild tenderness on palpation of the right sacroiliac joint. However Antolin test is negative Stinchfield test is negative pelvis compression test may be equivocal but pelvis destruction test is also negative. SLR is negative bilaterally. Loading test is positive bilaterally. Lassegue test is negative bilaterally. Valsalva maneuver is negative. Able to flex himself forward and backwards with remarkable range of motion however reports pain with flexing forward and backwards. Demonstrates very good strength of bilateral lower extremity by standing on bilateral tiptoes in bilateral heels, able to dorsiflex bilateral great toes in separation of the rest of the toes. This demonstrates normal strength of bilateral lower extremities L4-5 S1. Able to flex bilateral hip without difficulty. The demonstrates normal strength at the L3 and L4 nerve roots. Neuro General: patient oriented x3 and gait normal Cranial nerves: Yes CN's II-XII intact bilaterally, Yes Equal, round and reactive pupils present, Yes Normal hearing present and Yes Ability to bilaterally elevate shoulders present Speech: No Abnormal speech present Gait exam (Neuro): Normal gait present Motor exam (neuro): 5/5 motor strength present throughout Sensory Exam: No Sensory deficit (Neuro) Extrem General: No pedal edema Psych Speech and movement: Normal speech and movement present Affect: normal affect Attitude: cooperative Thought process: Normal thought process present Thought content: Normal thought content present Insight: Good insight present (Psych) Judgement: Good judgement present (Psych) Results Reviewed Results Reviewed: X-ray lumbar spine 10/24/2021 x-ray lumbar sacral spine with obliques. Findings bone alignment is normal no fracture or dislocation is seen there is mild degenerative disc disease at L1-L2. Disc spaces are otherwise normal. There is lower lumbar spine facet arthritis. No pars defect is seen. Assessment & Plan Assessment & Plan (1) Cervicalgia: Code(s): M54.2 - Cervicalgia (2) Low back pain: Code(s): M54.50 - Low back pain, unspecified (3) Spondylosis of lumbar region without myelopathy or radiculopathy: Code(s): M47.816 - Spondylosis without myelopathy or radiculopathy, lumbar region (4) Arthropathy of lumbar facet joint: Code(s): M47.816 - Spondylosis without myelopathy or radiculopathy, lumbar region (5) Chronic pain syndrome: Code(s): G89.4 - Chronic pain syndrome Plan Unfortunately diagnostic medial branch block resulted in no significant pain improvement. The x-ray as above demonstrates lower lumbar area facet joint arthritis however the results of diagnostic medial branch block a not impressive. I offered him to evaluate his lumbar spine with MRI without contrast. Will send him for this study. After this study he will give us a call and schedule appointment with me to evaluate his lower back pain again. Orders: Orders MR lumbar spine wo con Today G89.4 - Chronic pain syndrome, M47.816 - Spondylosis without myelopathy or radiculopathy, lumbar region, M54.50 - Low back pain, unspecified Coding Level of Care Code Est Pt Level 3 (04347) Diagnoses Cervicalgia M54.2 Low back pain M54.50 Spondylosis of lumbar region without myelopathy or radiculopathy M47.816 Arthropathy of lumbar facet joint M47.816 Chronic pain syndrome G89.4
[2023-06-10 13:51] VITALS: BP 133/74; PULSE 72; RESP 16; O2SAT 97; BMI 33.4
== END 2023-06-10 14:00 | disposition home or self-care (01) ==
PROVIDERS: PCP Nurse Practitioner Family; Visit Provider Anesthesiology
DX: M54.2 Cervicalgia (principal); M54.50 Low back pain, unspecified; M47.816 Spondylosis without myelopathy or radiculopathy, lumbar region; G89.4 Chronic pain syndrome
CPT/HCPCS: 99213

== ENCOUNTER → 2023-06-10 13:19 | Outpatient (BNVA) | payer OTHER, SELFPAY | PROVIDERS: PCP Nurse Practitioner Family; Visit Provider Anesthesiology | DX: M47.816 Spondylosis without myelopathy or radiculopathy, lumbar region (principal); M54.2 Cervicalgia; M54.50 Low back pain, unspecified; G89.4 Chronic pain syndrome | CPT/HCPCS: 99212 ==

== ENCOUNTER 2023-06-20 10:22 | Outpatient (AMB) | payer OTHER, SELFPAY ==
[2023-06-20 10:24] VITALS: BP 130/78; PULSE 92; O2SAT 98; BMI 33.9
--- NOTE | 2023-06-20 10:24 | MHC.PC.OV ---
Vital Signs 06/20/23 10:24 Height 5 ft 8 in Weight 223 lb 0.2 oz BMI 33.9 BP 130/78 Blood Pressure Location Lt brachial Position Sitting Pulse 92 Pulse Source Pulse Oximeter Pulse Oximetry (%) 98 Oxygen Delivery Method Room Air Intake Visit Reasons: PE [employer] Required: No Allergies No Known Allergies Allergy (Verified 06/20/23 10:38) Medication List - Last Reconciled 06/20/23 by SYDNI Trevino acetaminophen 1,000 mg (2 x 500 mg) PO Q6H PRN albuterol sulfate 90 mcg/actuation 2 puffs inhalation Q6H PRN blood pressure monitor As directed blood pressure monitor As directed cholecalciferol (vitamin D3) 25 mcg PO DAILY cyclobenzaprine 5 mg PO BEDTIME diclofenac sodium 1% (Voltaren Arthritis Pain) 2 grams topical QID dicyclomine 10 mg PO TID PRN hydrochlorothiazide 12.5 mg PO DAILY hydrocortisone 2.5% (Proctosol HC) 1 appl ME BID PRN hydroxyzine HCl 25 mg PO TID PRN ibuprofen 600 mg PO Q8H PRN lidocaine 5% 1 patch topical DAILY losartan 25 mg PO DAILY meclizine 25 mg PO DAILY PRN psyllium husk (with sugar) 2.5 gram (Metamucil Fiber Thin) 2 wafers PO DAILY rosuvastatin 5 mg PO DAILY sennosides (senna) 17.2 mg (2 x 8.6 mg) PO DAILY 10 days sertraline 100 mg PO DAILY tadalafil 5 mg PO DAILY 90 days tadalafil 20 mg PO ONCE PRN 30 days Tobacco use date assessed: 06/20/23 Dental Screening Dental Screen Date: 06/20/23 Did you have a dental visit in the last 12 months?: Yes Did you have a dental problem in the last 6 months where you did not have access to dental care?: No Was dental information given to patient?: Patient has dentist HPI PE HPI Details Patient is a 53-year-old male who presents today for physical exam.? Medical history significant for vertigo, hypertension, vitamin-D deficiency, obesity, depression, anxiety, low back pain radiating to right leg - followed by [facility] [facility], hyperlipidemia and hypogonadism in male - followed by Dr. Lechuga. Eye exam up-to-date. Colonoscopy 06/2022 with tubular adenoma was done by Dr. Wasserman. In addition, patient reports multiple joints pains for many years now, reports family history rheumatoid arthritis and mother with lupus - would like to be seen by rheumatology.? He also reports smoking cigarettes 10-12 per day for the past 3 years, encouraged smoking cessation, declined nicotine patch. Also reports bilateral ear decreased hearing left great in the right for the past some time. Patient is a Chinese-speaking and Dominick was helping with interpretation. Patient is asking that his sertraline would be decreased in dosage, felt like lower dose was working better for mental health.? [facility] Medical History (Updated 06/20/23 @ 12:56 by SYDNI Trevino) Borderline hypertension Chest pain Cough Screening for colon cancer Cough with exposure to COVID-19 virus Surgical History H/O colonoscopy History of pneumothorax Family History Mother Diabetes Hypertension Rheumatoid arthritis Father Dementia Cancer Maternal Grandfather Prostate CA Maternal Aunt Stomach cancer Social History Housing: House Alcohol intake: current Alcohol intake frequency: a few times a week Alcohol type: beer Patient Tobacco Use Status: Current someday Tobacco user Tobacco use type: Cigarette Cigarettes Per Day: 8 Years Smoked: 3 e-Cigarette/Vaping Use: Never Used Second Hand Smoke Exposure: No service: No Current occupational status: unemployed Cognitive needs: No Hearing needs: No Vision needs: No Questionnaire PHQ-9 Over the last 2 weeks, how often have you been bothered by any of the following problems? 1. Little interest or pleasure in doing things: not at all 2. Feeling down, depressed, or hopeless: not at all 3. Trouble falling or staying asleep, or sleeping too much: not at all 4. Feeling tired or having little energy: not at all 5. Poor appetite or overeating: not at all 6. Feeling bad about yourself - or that you are a failure or have let yourself or your family down: not at all 7. Trouble concentrating on things, such as reading the newspaper or watching television: not at all 8. Moving or speaking so slowly that other people could have noticed. Or the opposite - being so fidgety or restless that you have been moving around a lot more than usual: not at all 9. Thoughts that you would be better off or of hurting yourself in some way: not at all Total score: 0 Depression Screening Interpretation: Negative Depression Screening Done: Yes [id number] - PHQ-9 Billing: Yes Source: Developed by Drs. Amari Ruelas, Abbie Bella, Barrie Hopkins and colleagues, with an educational aspen from [employer]. Thrive Questionnaire Date Thrive assessed: 09/19/22 AUDIT C Alcohol Use Questionnaire (AUDIT-C) 1. How often do you have a drink containing alcohol?: 2-3 times a week 2. How many drinks containing alcohol do you have on a typical day when you are drinking?: 1 or 2 3. How often do you have six or more drinks on one occasion?: Never Total Score: 3 Score Reviewed/Action Taken: No BRENDA-7 AMB Questionnaire BRENDA-7 Date BRENDA - 7 assessed: 09/19/22 Feeling nervous, anxious, or on edge: 3 = Nearly every day Not being able to stop or control worryin = Nearly every day Worrying too much about different things: 0 = Not at all Trouble relaxin = Not at all Being so restless that it is hard to sit still: 0 = Not at all Becoming easily annoyed or irritable: 0 = Not at all Feeling afraid as if something awful might happen: 0 = Not at all Total BRENDA-7 score (0-4 normal; 5-9 mild; 10-14 moderate; 15-21 severe): 6 Source: Developed by Drs. Amari Ruelas, Abbie Bella, Barrie Hopkins and colleagues, with an educational aspen from [employer]. BRENDA-7 Assessment Billing BRENDA-7 Assessment Tool: BRENDA-7 Assessment 60852 Review of Systems Const Denies body aches, Denies chills, Denies fever(s) and Denies headache(s) Eyes Denies change in vision ENT Reports as per HPI, Denies dizziness, Denies otalgia, Denies headache(s), Denies nasal discharge, Denies sinus pain and Denies sore throat Card Denies chest pain, Denies edema, Denies lightheadedness and Denies dyspnea Resp Denies cough and Denies dyspnea GI Denies constipation, Denies diarrhea, Denies nausea and Denies vomiting Denies dysuria Musc Reports back pain, Denies myalgias and Reports arthralgias Skin/Breast Denies lesions and Denies rash Neuro Denies dizziness and Denies headache(s) Physical exam (Primary Care) Vital Signs: Last Vital Signs Pulse 92 06/20/23 10:24 BP 130/78 06/20/23 10:24 Pulse Ox 98 06/20/23 10:24 Oxygen Delivery Method Room Air 06/20/23 10:24 BMI result Body Mass Index 33.9 Tobacco/Smoking Status: Tobacco use Status Tobacco use date assessed 06/20/23 06/20/23 10:25 Patient Tobacco Use Status Current someday Tobacco 06/20/23 10:25 Tobacco use type Cigarette 06/20/23 10:25 e-Cigarette/Vaping Use Never Used 06/20/23 10:25 PHQ-9: PHQ-9 Score PHQ-9: Total score 0 06/20/23 10:42 Depression Screening Interpretation: Negative Thrive Assessment: Date of Thrive Assessment Date Thrive assessed 09/19/22 06/20/23 10:25 Const General: cooperative and no acute distress Orientation/consciousness: patient oriented x3 HENMT Head: Yes normocephalic and Yes atraumatic Ears: TM's normal bilaterally Face and sinus: Yes sinuses nontender Mouth: oropharynx normal and moist mucous membranes Throat: Yes posterior oropharynx normal Eyes General: appearance normal, both eyes and all related structures Pupils: Equal, round and reactive pupils present EOM: EOMs intact bilaterally Neck Neck: Yes normal visual inspection, Yes full ROM and Yes no lymphadenopathy Thyroid: Thyroid normal Resp Effort & Inspection: normal respiratory effort and able to speak in complete sentences Auscultation: clear to auscultation bilaterally, no crackles, no rales, no rhonchi and no wheezes Cardio Rate: regular rate Rhythm: regular rhythm Heart sounds: S1 normal heart sound present, S2 normal heart sound present and no murmurs GI Palpation (GI): Soft to palpation, not firm, nontender, no guarding, not rigid and no hepatosplenomegaly Auscultation: normal bowel sounds General: No CVA tenderness Back/Spine/Pelvis Back: No CVA tenderness Skin General skin exam: no rashes or lesions noted Neuro General: patient oriented x3 Cranial nerves: Yes Equal, round and reactive pupils present Gait exam (Neuro): Normal gait present Extrem General: Yes full ROM and No edema Assessment and Plan Assessment & Plan (1) Obesity (BMI 30-39.9): Code(s): E66.9 - Obesity, unspecified Plan: Healthy food choices and exercise as tolerated (2) Moderate major depression, single episode: Code(s): F32.1 - Major depressive disorder, single episode, moderate Plan: Same as below (3) Generalized anxiety disorder: Code(s): F41.1 - Generalized anxiety disorder Plan: Decrease sertraline to 50 mg daily Hydroxyzine 25 mg t.i.d. as needed (4) Hyperlipidemia: Code(s): E78.5 - Hyperlipidemia, unspecified Plan: LDL 194 09/2022, LDL goal less than 130 Continue rosuvastatin 5 mg daily Low-cholesterol diet (5) Hypertension: Code(s): I10 - Essential (primary) hypertension Plan: Goal BP equal or less than 140/90 Continue losartan 25 mg daily Continue hydrochlorothiazide 12.5 mg daily Low-sodium diet and weight loss (6) Elevated fasting glucose: Code(s): R73.01 - Impaired fasting glucose Plan: Will check A1c (7) Polyarthralgia: Code(s): M25.50 - Pain in unspecified joint Plan: Rheumatology referral (8) Decreased hearing of both ears: Code(s): H91.93 - Unspecified hearing loss, bilateral Plan: Referral for hearing test (9) Screening for prostate cancer: Code(s): Z12.5 - Encounter for screening for malignant neoplasm of prostate (10) Adult general medical exam: Code(s): Z00.00 - Encounter for general adult medical examination without abnormal findings Orders: Orders Prostate Specific Antigen Today Z12.5 - Encounter for screening for malignant neoplasm of prostate TSH reflex Free T4 Today I10 - Essential (primary) hypertension Complete Blood Count Auto Diff Today I10 - Essential (primary) hypertension Hemoglobin A1c Today I10 - Essential (primary) hypertension Vitamin D 25-OH Total Today I10 - Essential (primary) hypertension Lipid Panel Today I10 - Essential (primary) hypertension Comprehensive [place]. Panel Fast Today I10 - Essential (primary) hypertension Referrals Audiology Referral H91.93 - Unspecified hearing loss, bilateral Rheumatology Referral M25.50 - Pain in unspecified joint Medications: New sertraline 50 mg PO DAILY 90 tabs 0RF F32.1 - Major depressive disorder, single episode, moderate Refilled ibuprofen 600 mg PO Q8H PRN 20 tabs 0RF pain M54.50 - Low back pain, unspecified, M79.606 - Pain in leg, unspecified losartan 25 mg PO DAILY 90 tabs 1RF I10 - Essential (primary) hypertension hydrochlorothiazide 12.5 mg PO DAILY 90 caps 1RF I10 - Essential (primary) hypertension Discontinued sertraline Discontinued Reason: Doctor's Order 100 mg PO DAILY 90 tabs 1RF F32.1 - Major depressive disorder, single episode, moderate, F41.1 - Generalized anxiety disorder Coding Level of Care Code Est Pt Prev Care 40-64y(55210) Diagnoses Obesity (BMI 30-39.9) E66.9 Moderate major depression, single episode F32.1 Generalized anxiety disorder F41.1 Hyperlipidemia E78.5 Hypertension I10 Elevated fasting glucose R73.01 Polyarthralgia M25.50 Decreased hearing of both ears H91.93 Screening for prostate cancer Z12.5 Adult general medical exam Z00.00 Additional Codes BRENDA-7 Assessment Billing - BRENDA-7 Assessment Tool: BRENDA-7 Assessment [id number] ([id number])
== END 2023-06-20 11:28 | disposition home or self-care (01) ==
PROVIDERS: PCP Nurse Practitioner Family; Visit Provider Nurse Practitioner Family
DX: Z00.00 Encounter for general adult medical examination without abnormal findings (principal); E66.9 Obesity, unspecified; Z68.33 Body mass index [BMI] 33.0-33.9, adult; F32.1 Major depressive disorder, single episode, moderate; I10 Essential (primary) hypertension; H91.93 Unspecified hearing loss, bilateral
CPT/HCPCS: 99396

== ENCOUNTER 2023-10-11 15:58 | Outpatient (REF) | payer OTHER, SELFPAY ==
--- NOTE | ~2023-10-11 | MR_ITS ---
EXAMINATION: MR LUMBAR SPINE WITHOUT CONTRAST CLINICAL INFORMATION: Bilateral lower extremity pain and weakness. Low back pain. COMPARISON: X-ray lumbar spine dated 10/24/2021. TECHNIQUE: Multiplanar, multisequence imaging was obtained. FINDINGS: VERTEBRAL BODIES AND PARASPINAL STRUCTURES: The marrow is low in signal on T1 and T2-weighted imaging. There is an intraosseous hemangioma in the L4 vertebral body. Mild multilevel endplate Schmorl's nodes noted. There is a moderate loss of disc height at the L1-L2 level with reactive endplate edema. The posterior paraspinal soft tissues are normal. There is mild left lateralized endplate edema at the L5-S1 level. Mild edema is visible in the pedicles and posterior elements at the L3-L4 and L4-L5 levels, possibly stress-related in etiology. There is congenital narrowing of the spinal canal with foreshortening of the pedicles. Additional epidural fat prominence results in varying degrees of thecal sac distortion. CONUS MEDULLARIS AND CAUDA EQUINE: The distal cord, conus tip, and cauda equina nerve roots are normal. SPINAL LEVELS: L1-L2: Moderate loss of disc height and mild diffuse disc bulge slightly impressing upon the ventral thecal sac. No central canal stenosis or significant foraminal encroachment. L2-L3: Broad-based disc bulge and hypertrophic facet arthropathy with mild ventral thecal sac distortion. Mild central canal stenosis and dorsal epidural fat prominence. Very mild left foraminal narrowing. L3-L4: Diffuse disc bulge present with moderate facet arthropathy and dorsal epidural fat prominence. Mild central canal stenosis and [id number] thecal sac distortion. Bilateral foraminal disc protrusions and annular fissures with resultant [id number] encroachment and compression of the exiting L3 nerve roots. L4-L5: Slight posterior subluxation and concentric disc bulge with facet arthropathy and dorsal epidural fat prominence resulting in moderate thecal sac distortion. Mild central canal stenosis. Mild bilateral foraminal narrowing. L5-S1: Mild posterior subluxation and central disc protrusion without nerve root impingement. Epidural fat prominence distorts the thecal sac. Hypertrophic facet arthropathy also present. Moderate left foraminal narrowing and mild right foraminal encroachment. MR/MR lumbar spine wo con IMPRESSION: 1. 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 2. Mild central canal stenosis at the L3-L4 level with dorsal epidural fat prominence. Bilateral foraminal disc protrusions with significant encroachment and compression of the exiting L3 nerve roots. 3. Moderate disc degeneration with mild reactive endplate edema at the L1-L2 level. 4. Mild central canal stenosis at the L2-L3 and L4-L5 levels with epidural fat prominence, more so at the L4-L5 level, contributing to moderate thecal sac distortion. 5. Moderate left foraminal narrowing at the L5-S1 level with a small central disc protrusion and epidural fat prominence distorting the thecal sac. 6. Nonspecific mild edema in the pedicles and posterior elements at multiple levels in the lumbar spine, possibly stress-related in etiology. 7. Generalized signal abnormality within the bone marrow which suggests a marrow replacement or infiltrative disease process. This finding is nonspecific and possible etiologies include stimulated red marrow, as can be seen with smoking, iron deficiency, and chronic infection. In addition, a lymphoproliferative disease process cannot be excluded on the basis of imaging. Recommend correlation with clinical history and consider a complete CBC analysis for further workup.
== END 2023-10-11 15:59 | disposition home or self-care (01) ==
LOC: HO.MRI 15:58
PROVIDERS: PCP Nurse Practitioner Family; Visit Provider Anesthesiology
DX: M47.816 Spondylosis without myelopathy or radiculopathy, lumbar region (principal); M54.50 Low back pain, unspecified; G89.4 Chronic pain syndrome
CPT/HCPCS: 72148

== ENCOUNTER 2023-10-15 14:17 | Outpatient (AMB) | payer OTHER, SELFPAY ==
--- NOTE | 2023-10-15 14:25 | MHC.PC.OV ---
Vital Signs 10/15/23 14:28 Height 5 ft 8 in Weight 230 lb BMI 35.0 BP 130/74 Blood Pressure Location Lt brachial Position Sitting Pulse 109 H Pulse Source Pulse Oximeter Pulse Oximetry (%) 97 Oxygen Delivery Method Room Air Intake Visit Reasons: F/U HTN, depression Intake Note: Patient is here to follow up on HTN, Depression. ADILENE from [employer] Membership Advisor Required: Yes Membership Advisor Language: Associate Professor Of Literacy Name: Matheus Bonilla ([id number]) Information Interpreted: non-clinical & clinical Rug Dry Room Attendant: Present Accompanied by: Spouse Allergies No Known Allergies Allergy (Verified 10/15/23 15:31) Medication List - Last Reconciled 10/15/23 by Brock Dougherty MD acetaminophen 1,000 mg (2 x 500 mg) PO Q6H PRN albuterol sulfate 90 mcg/actuation 2 puffs inhalation Q6H PRN blood pressure monitor As directed blood pressure monitor As directed cholecalciferol (vitamin D3) 25 mcg PO DAILY cyclobenzaprine 5 mg PO BEDTIME diclofenac sodium 1% (Voltaren Arthritis Pain) 2 grams topical QID dicyclomine 10 mg PO TID PRN hydrochlorothiazide 12.5 mg PO DAILY hydroxyzine HCl 25 mg PO TID PRN ibuprofen 600 mg PO Q8H PRN lidocaine 5% 1 patch topical DAILY losartan 25 mg PO DAILY meclizine 25 mg PO DAILY PRN psyllium husk (with sugar) 2.5 gram (Metamucil Fiber Thin) 2 wafers PO DAILY rosuvastatin 5 mg PO DAILY sennosides (senna) 17.2 mg (2 x 8.6 mg) PO DAILY 10 days sertraline 50 mg PO DAILY tadalafil 20 mg PO ONCE PRN 30 days tadalafil 5 mg PO DAILY 90 days Tobacco use date assessed: 10/15/23 Dental Screening Dental Screen Date: 10/15/23 Did you have a dental visit in the last 12 months?: No Did you have a dental problem in the last 6 months where you did not have access to dental care?: No Was dental information given to patient?: No HPI F/U HTN, depression HPI Details 53-year-old male presents to the office to discuss his medical condition. A search and rescue officer using the iPad was used. I am assuming his care as his current primary care provider has left the practice. Patient is emotionally disorganized, he reports that he is feeling depressed and anxious. He lost his mother 3 months ago. Has not been taking the Zoloft since August as he ran out of the prescription. In addition he is complaining of nonspecific body pains and back pains. Patient has been drinking 3 to 4 times a week. He has gained weight and not exercising. [facility] Medical History Borderline hypertension Chest pain Cough Screening for colon cancer Cough with exposure to COVID-19 virus Surgical History H/O colonoscopy History of pneumothorax Family History Mother Diabetes Hypertension Rheumatoid arthritis Father Dementia Cancer Maternal Grandfather Prostate CA Maternal Aunt Stomach cancer Social History Housing: House Alcohol intake: current Alcohol intake frequency: a few times a week Alcohol type: beer Patient Tobacco Use Status: Current someday Tobacco user Tobacco use type: Cigarette Cigarettes Per Day: 8 Years Smoked: 3 e-Cigarette/Vaping Use: Never Used Second Hand Smoke Exposure: Yes service: No Current occupational status: unemployed Cognitive needs: No Hearing needs: No Vision needs: Yes (glasses) Questionnaire PHQ-9 Over the last 2 weeks, how often have you been bothered by any of the following problems? 1. Little interest or pleasure in doing things: not at all 2. Feeling down, depressed, or hopeless: nearly every day 3. Trouble falling or staying asleep, or sleeping too much: more than half the days 4. Feeling tired or having little energy: nearly every day 5. Poor appetite or overeating: more than half the days 6. Feeling bad about yourself - or that you are a failure or have let yourself or your family down: nearly every day 7. Trouble concentrating on things, such as reading the newspaper or watching television: nearly every day 8. Moving or speaking so slowly that other people could have noticed. Or the opposite - being so fidgety or restless that you have been moving around a lot more than usual: nearly every day 9. Thoughts that you would be better off or of hurting yourself in some way: not at all Total score: 19 Depression Screening Interpretation: Positive Depression Screening Follow-up: Existing condition, New Medication prescribed (Zoloft 100 mg started.) and Declines treatment (Declines to see a therapist.) Depression Screening Done: Yes Source: Developed by Drs. Amari Ruelas, Abbie Bella, Barrie Hopkins and colleagues, with an educational aspen from [employer]. Thrive Questionnaire Date Thrive assessed: 10/15/23 I am a: Patient What is your living situation today?: I have a steady place to live Within the past 12 months, did the food you bought not last and you didn't have the money to get more?: Never true Within the past 12 months, did you worry whether your food would run out before you got money to buy more?: Never true Do you have trouble paying for medicines?: No Do you have trouble getting transportation to medical appointments?: No Do you have trouble paying your heating and electricity bill?: No Do you have trouble taking care of your child, family member or friend?: No Do you have trouble with day-to-day activities such as bathing, preparing meals, shopping, managing finances, etc.?: No Are you currently unemployed and looking for a job?: No Are you interested in more education?: No Currently or been in a relationship where the following occur: no concerns reported THRIVE Score: 0 AUDIT C Alcohol Use Questionnaire (AUDIT-C) 1. How often do you have a drink containing alcohol?: 2-4 times a month 2. How many drinks containing alcohol do you have on a typical day when you are drinking?: 1 or 2 Total Score: 2 BRENDA-7 AMB Questionnaire BRENDA-7 Date BRENDA - 7 assessed: 10/15/23 Feeling nervous, anxious, or on edge: 3 = Nearly every day Not being able to stop or control worryin = More than half the days Worrying too much about different things: 2 = More than half the days Trouble relaxin = More than half the days Being so restless that it is hard to sit still: 2 = More than half the days Becoming easily annoyed or irritable: 1 = Several days Feeling afraid as if something awful might happen: 1 = Several days Total BRENDA-7 score (0-4 normal; 5-9 mild; 10-14 moderate; 15-21 severe): 13 Source: Developed by Drs. Amari Ruelas, Abbie Bella, Barrie Hopkins and colleagues, with an educational aspen from [employer]. Physical exam (Primary Care) Vital Signs: Last Vital Signs Pulse 109 H 10/15/23 14:28 BP 130/74 10/15/23 14:28 Pulse Ox 97 10/15/23 14:28 Oxygen Delivery Method Room Air 10/15/23 14:28 BMI result Body Mass Index 35.0 Tobacco/Smoking Status: Tobacco use Status Tobacco use date assessed 10/15/23 10/15/23 14:31 Patient Tobacco Use Status Current someday Tobacco 10/15/23 14:31 Tobacco use type Cigarette 10/15/23 14:31 e-Cigarette/Vaping Use Never Used 10/15/23 14:31 PHQ-9: PHQ-9 Score PHQ-9: Total score 19 10/15/23 14:47 Depression Screening Interpretation: Positive Depression Screening Follow-up: Existing condition, New Medication prescribed (Zoloft 100 mg started.) and Declines treatment (Declines to see a therapist.) Thrive Assessment: Date of Thrive Assessment Date Thrive assessed 10/15/23 10/15/23 14:31 Currently or been in a relationship where the following occur: no concerns reported Const General: cooperative and healthy appearing Nutritional Appearance: well nourished Orientation/consciousness: patient oriented x3 Limitations: no limitations HENMT Head: Yes normal to inspection Eyes General: appearance normal, both eyes and all related structures Neck Neck: Yes normal visual inspection Chest Chest palpation & inspection: normal palpation of entire chest wall Resp Effort & Inspection: normal respiratory effort Neuro General: patient oriented x3 Assessment and Plan Assessment & Plan (1) Moderate major depression, single episode: Code(s): F32.1 - Major depressive disorder, single episode, moderate Plan: Zoloft has been restarted at 100 mg once a day. Patient was encouraged to be compliant with medications. (2) Hypertension: Code(s): I10 - Essential (primary) hypertension Plan: Blood pressure is in range. Continue medications. (3) Musculoskeletal back pain: Code(s): M54.9 - Dorsalgia, unspecified Plan: Patient has been seeing the pain clinic. He has had some procedures done. MRI was ordered from there. Awaiting results. Medications: Refilled sennosides (senna) 17.2 mg (2 x 8.6 mg) PO DAILY 10 days 20 tabs 0RF losartan 25 mg PO DAILY 90 tabs 1RF I10 - Essential (primary) hypertension hydrochlorothiazide 12.5 mg PO DAILY 90 caps 1RF I10 - Essential (primary) hypertension cyclobenzaprine 5 mg PO BEDTIME 20 tabs 0RF lidocaine 5% leave on most painful area for up to 12 hrs 1 patch topical DAILY 15 ea 0RF M54.50 - Low back pain, unspecified, M79.606 - Pain in leg, unspecified rosuvastatin 5 mg PO DAILY 30 tabs 2RF E78.5 - Hyperlipidemia, unspecified acetaminophen 1,000 mg (2 x 500 mg) PO Q6H PRN 120 tabs 0RF pain M54.50 - Low back pain, unspecified, M79.606 - Pain in leg, unspecified albuterol sulfate 90 mcg/actuation 2 puffs inhalation Q6H PRN 6.7 grams 0RF shortness of breath or wheezing cholecalciferol (vitamin D3) 25 mcg PO DAILY 90 tabs 3RF R79.89 - Other specified abnormal findings of blood chemistry diclofenac sodium 1% (Voltaren Arthritis Pain) apply to single elbow, wrist or hand; for hand includes palm/fingers/back of hand 2 grams topical QID 100 grams 0RF hydroxyzine HCl 25 mg PO TID PRN 90 tabs 0RF anxiety F41.1 - Generalized anxiety disorder ibuprofen 600 mg PO Q8H PRN 20 tabs 0RF pain M54.50 - Low back pain, unspecified, M79.606 - Pain in leg, unspecified meclizine 25 mg PO DAILY PRN 10 tabs 0RF motion sickness R42 - Dizziness and giddiness psyllium husk (with sugar) 2.5 gram (Metamucil Fiber Thin) 2 wafers PO DAILY 60 wafers 3RF sertraline 50 mg PO DAILY 90 tabs 0RF F32.1 - Major depressive disorder, single episode, moderate tadalafil On demand medication take 60 minutes before intended activity 20 mg PO ONCE 30 days PRN 30 tabs 0RF sexual activity N52.9 - Male erectile dysfunction, unspecified tadalafil 5 mg PO DAILY 90 days 90 tabs 1RF sexual activity N52.9 - Male erectile dysfunction, unspecified Coding Level of Care Code Est Pt Level 4 (30012) Diagnoses Moderate major depression, single episode F32.1 Hypertension I10 Musculoskeletal back pain M54.9
[2023-10-15 14:28] VITALS: BP 130/74; PULSE 109; O2SAT 97; BMI 35.0
== END 2023-10-15 16:06 | disposition home or self-care (01) ==
PROVIDERS: PCP Nurse Practitioner Family; Visit Provider Internal Medicine
DX: F32.1 Major depressive disorder, single episode, moderate (principal); I10 Essential (primary) hypertension; M54.9 Dorsalgia, unspecified
CPT/HCPCS: 99214

== ENCOUNTER 2023-10-28 09:42 | Outpatient (REF) | payer OTHER, SELFPAY ==
[2023-10-28 10:58] LABS: Hematocrit 48.8 % (42.0-52.0); Mean Corpuscular HGB Conc 34.8 g/dl (31.0-36.0); Mean Corpuscular Hemoglobin 31.5 pg (27.0-33.0); Mean Corpuscular Volume 90.4 fL (80.0-98.0); Mean Platelet Volume 11.3 fL (9.4-12.4); Platelet Count 208 X10*3/uL (160-400); Red Cell Distribution Width 11.8 % (11.0-16.0); White Blood Count 7.5 X10*3/uL (4.8-10.8)
[2023-10-28 11:35] LABS: Estimated Average Glucose 120 mg/dL; Hemoglobin A1c % 5.8 % (<6.0)
[2023-10-28 11:49] LABS: Alanine Aminotransferase 40 U/L (0-40); Albumin Level 4.4 g/dL (3.5-5.0); Alkaline Phosphatase 83 U/L (39-117); Aspartate Amino Transferase 34 U/L (5-37); Blood Urea Nitrogen 11 mg/dL (9-16); Calcium 9.4 mg/dL (8.4-10.2); Carbon Dioxide 26 mmol/L (22-29); Chloride 104 mmol/L (96-108); Cholesterol 212 mg/dL (<200); Estimated Glomerular Filt Rate > 60; Glucose Fasting 103 mg/dL (60-99); HDL Cholesterol 43 mg/dL (>40); LDL Cholesterol Calculated 127 mg/dL (<100); Potassium 4.5 mmol/L (3.3-5.1); Sodium 137 mmol/L (135-145); Total Protein 8.2 g/dL (6.5-8.0); Triglycerides 211 mg/dL (<150)
[2023-10-28 11:55] LABS: Prostate Specific Antigen 0.24 ng/mL (<0.05-4.0)
[2023-10-28 12:06] LABS: Vitamin D 25-OH Total 24.1 ng/mL (>30)
[2023-10-28 12:19] LABS: Anion Gap 15 (12-20); Bilirubin Total 0.8 mg/dL (0.0-1.0)
[2023-10-28 13:20] LABS: Atypical Lymph Absolute Manual 0.5 x10*3/uL; Atypical Lymphs Percent Manual 6 % (0-6); Band Neutrophils Percent 1 % (3-5); Eosinophils Absolute Manual 0.5 X10*3/uL (0.0-0.4); Eosinophils Percent Manual 6 % (0-4); Lymphocytes Percent Manual 27 % (20-40); Monocytes Absolute Manual 0.7 X10*3/uL (0.1-1.2); Monocytes Percent Manual 9 % (2-11); Neutrophils Absolute Manual 3.9 X10*3/uL (2.0-8.3); Neutrophils Percent Manual 51 % (45-73)
[2023-10-28 13:21] LABS: Giant Platelet PRESENT; Large Platelet PRESENT; Platelet Estimate NORMAL (NORMAL); Platelet Morphology Comment NOTED; RBC Morphology NORMAL
== END 2023-10-28 09:43 | disposition home or self-care (01) ==
LOC: HO.LAB 09:42
PROVIDERS: PCP Nurse Practitioner Family; Visit Provider Nurse Practitioner Family
DX: I10 Essential (primary) hypertension (principal); E55.9 Vitamin D deficiency, unspecified; E78.5 Hyperlipidemia, unspecified; M54.2 Cervicalgia; G89.4 Chronic pain syndrome; M47.26 Other spondylosis with radiculopathy, lumbar region; M51.36 Other intervertebral disc degeneration, lumbar region; Z12.5 Encounter for screening for malignant neoplasm of prostate
CPT/HCPCS: 36415; 80053; 80061; 82306; 83036; 84153; 84443; 85007; 85025; 85027; 99212

== ENCOUNTER 2023-10-28 10:32 | Outpatient (AMB) | payer OTHER, SELFPAY ==
--- NOTE | 2023-10-28 10:34 | A.OFFVIS_ITS ---
Intake Vital Signs 10/28/23 10:39 Height 5 ft 8 in Weight 230 lb BMI 35.0 BP 146/82 H Blood Pressure Location Lt brachial Position Sitting Respiration 16 Pulse 100 Pulse Source Pulse Oximeter Pulse Oximetry (%) 96 Oxygen Delivery Method Room Air Intake Visit Reasons: discuss MRI results Intake Note: Patient comes in to discuss MRI results. Reports pain 7/10. Allergies No Known Allergies Allergy (Verified 10/15/23 15:31) HPI HPI Comments History of Present Illness Details Ambrose is back in my office to discuss results of the MRI. He had di agnostic medial branch block after which his pain did not change in intensity. However he reported that pain before the procedure was 3/10 and after the procedure it was 3/10 so in general he did not have much of the pain pronounced before the injection. I sent him for MRI of the lumbar spine results of the MRI dictated as below. Besides arthritis no major pain generators could be found on the MRI except L3-L4 interspace at which there is some nerve root compression exists. I offered him today diagnostic and therapeutic L3-L4 bilateral transforaminal epidural steroid injection. The patient agreed to go for the procedure. I will see the patient after the procedure to evaluate the level of the pain after that injection. Prior: very pleasant mostly Sudanese-speaking 52 years old gentleman who presents in my office with complains on pain in the lumbar spine as well as pain in the neck. He reports the pain in the lower lumbar spine with radiation to mostly left lower extremity to the level just below the level of the knee but not lower that this level. He admits some radiation into the right hip as well. He denies radiation all the way down to his feet or toes. He reports that he suffers from these pain for many years. He was under care of primary care physician and he complained on this pain for past 10 years. He reports that his pain is a result of continual injury but this was not any job-related since any ruiz. He cannot sleep normally because of his pain he can do activities of daily living he can take care of himself but he cannot function normally. 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 Weather changes in movements aggravates his pain. He received x-ray of the lumbar spine result of which were dictated as below. He went for physical therapy for his pain in the past however he was not able to tolerate physical therapy well. Refuses to go to physical therapy again. He never received any injections. [facility] Medical History Borderline hypertension Chest pain Cough Screening for colon cancer Cough with exposure to COVID-19 virus Surgical History H/O colonoscopy History of pneumothorax Family History Mother Diabetes Hypertension Rheumatoid arthritis Father Dementia Cancer Maternal Grandfather Prostate CA Maternal Aunt Stomach cancer Social History Housing: House Alcohol intake: current Alcohol intake frequency: a few times a week Alcohol type: beer Patient Tobacco Use Status: Current someday Tobacco user Tobacco use type: Cigarette Cigarettes Per Day: 8 Years Smoked: 3 e-Cigarette/Vaping Use: Never Used Second Hand Smoke Exposure: Yes service: No Current occupational status: unemployed Cognitive needs: No Hearing needs: No Vision needs: Yes (glasses) Review of Systems Const All systems reviewed & are unremarkable except as noted in HPI and below ENT Reports Normal hearing present Neuro Reports Normal hearing present, Denies Abnormal speech present and Denies Sensory deficit (Neuro) Physical Exam Vital Signs: Last Vital Signs Pulse 100 10/28/23 10:39 Resp 16 10/28/23 10:39 BP 146/82 H 10/28/23 10:39 Pulse Ox 96 10/28/23 10:39 Oxygen Delivery Method Room Air 10/28/23 10:39 BMI result Body Mass Index 35.0 Const General: no acute distress Nutritional Appearance: obese (Trivial obesity) Orientation/consciousness: patient oriented x3 Eyes General: appearance normal, both eyes and all related structures Pupils: Equal, round and reactive pupils present EOM: EOMs intact bilaterally Neck Other: Tenderness on palpation in paraspinal spinal region of the cervical spine. Neck: Yes full ROM Chest Chest palpation & inspection: normal inspection of the chest Resp Effort & Inspection: normal respiratory effort, able to speak in complete sentences, normal respiratory pattern, no audible wheezes and no cough Cardio Jugular venous distension: no JVD GI Inspection: Yes normal to inspection Back/Spine/Pelvis Other: Minimal tenderness on palpation on paraspinal and spinal region. Mild tenderness on palpation of the right sacroiliac joint. However Antolin test is negative Stinchfield test is negative pelvis compression test may be equivocal but pelvis destruction test is also negative. SLR is negative bilaterally. Loading test is positive bilaterally. Lassegue test is negative bilaterally. Valsalva maneuver is negative. Able to flex himself forward and backwards with remarkable range of motion however reports pain with flexing forward and backwards. Demonstrates very good strength of bilateral lower extremity by standing on bilateral tiptoes in bilateral heels, able to dorsiflex bilateral great toes in separation of the rest of the toes. This demonstrates normal strength of bilateral lower extremities L4-5 S1. Able to flex bilateral hip without difficulty. The demonstrates normal strength at the L3 and L4 nerve roots. Neuro General: patient oriented x3 and gait normal Cranial nerves: Yes CN's II-XII intact bilaterally, Yes Equal, round and reactive pupils present, Yes Normal hearing present and Yes Ability to bilaterally elevate shoulders present Speech: No Abnormal speech present Gait exam (Neuro): Normal gait present Motor exam (neuro): 5/5 motor strength present throughout Sensory Exam: No Sensory deficit (Neuro) Extrem General: No pedal edema Psych Speech and movement: Normal speech and movement present Affect: normal affect Attitude: cooperative Thought process: Normal thought process present Thought content: Normal thought content present Insight: Good insight present (Psych) Judgement: Good judgement present (Psych) Results Reviewed Results Reviewed: [address] [address] Magnetic Resonance Report Signed Patient: Ambrose Leslie MR#: [id number] : 1970 Acct:[id number] Age/Sex: 53 / M ADM Date: 10/11/23 MR LUMBAR SPINE WITHOUT CONTRAST FINDINGS: VERTEBRAL BODIES AND PARASPINAL STRUCTURES: The marrow is low in signal on T1 and T2-weighted imaging. There is an intraosseous hemangioma in the L4 vertebral body. Mild multilevel endplate Schmorl's nodes noted. There is a moderate loss of disc height at the L1-L2 level with reactive endplate edema. The posterior paraspinal soft tissues are normal. There is mild left lateralized endplate edema at the L5-S1 level. Mild edema is visible in the pedicles and posterior elements at the L3-L4 and L4-L5 levels, possibly stress-related in etiology. There is congenital narrowing of the spinal canal with foreshortening of the pedicles. Additional epidural fat prominence results in varying degrees of thecal sac distortion. CONUS MEDULLARIS AND CAUDA EQUINE: The distal cord, conus tip, and cauda equina nerve roots are normal. SPINAL LEVELS: L1-L2: Moderate loss of disc height and mild diffuse disc bulge slightly impressing upon the ventral thecal sac. No central canal stenosis or significant foraminal encroachment. L2-L3: Broad-based disc bulge and hypertrophic facet arthropathy with mild ventral thecal sac distortion. Mild central canal stenosis and dorsal epidural fat prominence. Very mild left foraminal narrowing. L3-L4: Diffuse disc bulge present with moderate facet arthropathy and dorsal epidural fat prominence. Mild central canal stenosis and [id number] thecal sac distortion. Bilateral foraminal disc protrusions and annular fissures with resultant [id number] encroachment and compression of the exiting L3 nerve roots. L4-L5: Slight posterior subluxation and concentric disc bulge with facet arthropathy and dorsal epidural fat prominence resulting in moderate thecal sac distortion. Mild central canal stenosis. Mild bilateral foraminal narrowing. L5-S1: Mild posterior subluxation and central disc protrusion without nerve root impingement. Epidural fat prominence distorts the thecal sac. Hypertrophic facet arthropathy also present. Moderate left foraminal narrowing and mild right foraminal encroachment. MR/MR lumbar spine wo con IMPRESSION: 1. 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 2. Mild central canal stenosis at the L3-L4 level with dorsal epidural fat prominence. Bilateral foraminal disc protrusions with significant encroachment and compression of the exiting L3 nerve roots. 3. Moderate disc degeneration with mild reactive endplate edema at the L1-L2 level. 4. Mild central canal stenosis at the L2-L3 and L4-L5 levels with epidural fat prominence, more so at the L4-L5 level, contributing to moderate thecal sac distortion. 5. Moderate left foraminal narrowing at the L5-S1 level with a small central disc protrusion and epidural fat prominence distorting the thecal sac. 6. Nonspecific mild edema in the pedicles and posterior elements at multiple levels in the lumbar spine, possibly stress-related in etiology. 7. Generalized signal abnormality within the bone marrow which suggests a marrow replacement or infiltrative disease process. This finding is nonspecific and possible etiologies include stimulated red marrow, as can be seen with smoking, iron deficiency, and chronic infection. In addition, a lymphoproliferative disease process cannot be excluded on the basis of imaging. Recommend correlation with clinical history and consider a complete CBC analysis for further workup. Assessment & Plan Assessment & Plan (1) Cervicalgia: Code(s): M54.2 - Cervicalgia (2) Low back pain: Code(s): M54.50 - Low back pain, unspecified (3) Spondylosis of lumbar region without myelopathy or radiculopathy: Code(s): M47.816 - Spondylosis without myelopathy or radiculopathy, lumbar region (4) Arthropathy of lumbar facet joint: Code(s): M47.816 - Spondylosis without myelopathy or radiculopathy, lumbar region (5) Chronic pain syndrome: Code(s): G89.4 - Chronic pain syndrome (6) Radiculopathy, lumbar region: Code(s): M54.16 - Radiculopathy, lumbar region (7) Disc degeneration, lumbar: Code(s): M51.36 - Other intervertebral disc degeneration, lumbar region Plan Diagnostic medial branch block resulted in no significant pain improvement. MRI demonstrated widespread arthritis very small local endplate edema at L5-S1 more to the left I do not think that this is vertebra genic pain. Moderate to severe encroachment and compression of exiting L3 nerve roots at L3- L4 interval is also demonstrated. I will schedule this patient for transforaminal epidural steroid injection bilat eral L3-L4 I will see this patient after the procedure and we will return to the search of the pain generators if results are not promising. Coding Level of Care Code Est Pt Level 3 (56030) Diagnoses Cervicalgia M54.2 Low back pain M54.50 Spondylosis of lumbar region without myelopathy or radiculopathy M47.816 Arthropathy of lumbar facet joint M47.816 Chronic pain syndrome G89.4 Radiculopathy, lumbar region M54.16 Disc degeneration, lumbar M51.36
[2023-10-28 10:39] VITALS: BP 146/82; PULSE 100; RESP 16; O2SAT 96; BMI 35.0
== END 2023-10-28 10:48 | disposition home or self-care (01) ==
LOC: HO.PMC 10:32
PROVIDERS: PCP Nurse Practitioner Family; Visit Provider Anesthesiology
DX: M54.2 Cervicalgia (principal); M54.50 Low back pain, unspecified; M47.816 Spondylosis without myelopathy or radiculopathy, lumbar region; G89.4 Chronic pain syndrome; M54.16 Radiculopathy, lumbar region; M51.36 Other intervertebral disc degeneration, lumbar region
CPT/HCPCS: 99213

== ENCOUNTER 2024-01-03 12:23 | Outpatient (REF) | payer OTHER, SELFPAY | END 2024-01-03 12:24 | disposition home or self-care (01) | LOC: HO.SH 12:23 | PROVIDERS: Visit Provider Nurse Practitioner Family | DX: Z01.118 Encounter for examination of ears and hearing with other abnormal findings (principal); H90.3 Sensorineural hearing loss, bilateral | CPT/HCPCS: 92557; 92567 ==

== ENCOUNTER 2024-01-09 11:39 | Outpatient (AMB) | payer OTHER, SELFPAY ==
[2024-01-09 11:47] VITALS: BP 140/78; PULSE 97; TEMP 36.3; O2SAT 97; BMI 34.5
--- NOTE | 2024-01-09 11:47 | MHC.OFFWIV ---
Intake Vital Signs 01/09/24 11:47 Height 5 ft 8 in Weight 227 lb BMI 34.5 BP 140/78 H Blood Pressure Location Lt brachial Position Sitting Pulse 97 Pulse Source Pulse Oximeter Temp 97.3 F Temp Source Temporal Artery Scan Pulse Oximetry (%) 97 Oxygen Delivery Method Room Air Intake Visit Reasons: EP Rib pain LT side Intake Note: pt is here today for rib pain lft side started 3 weeks ago Patient Tobacco Use Status: Current someday Tobacco user Allergies No Known Allergies Allergy (Verified 01/09/24 11:49) Do you need a note to return to daycare/school/sports/work: Yes HPI HPI Comments History of Present Illness Details 53 y/o male patient who presents to walk in clinic with c/o cough associated with left lower chest tenderness. Denies SOB or wheezing. PFS Medical History Borderline hypertension Chest pain Cough Screening for colon cancer Cough with exposure to COVID-19 virus Surgical History H/O colonoscopy History of pneumothorax Family History Mother Diabetes Hypertension Rheumatoid arthritis Father Dementia Cancer Maternal Grandfather Prostate CA Maternal Aunt Stomach cancer Social History Housing: House Alcohol intake: current Alcohol intake frequency: a few times a week Alcohol type: beer Patient Tobacco Use Status: Current someday Tobacco user Tobacco use type: Cigarette Cigarettes Per Day: 8 Years Smoked: 3 e-Cigarette/Vaping Use: Never Used Second Hand Smoke Exposure: Yes service: No Current occupational status: unemployed Cognitive needs: No Hearing needs: No Vision needs: Yes (glasses) Review of Systems Const All systems reviewed & are unremarkable except as noted in HPI and below Physical Exam Vital Signs: Last Vital Signs Temp 97.3 F 01/09/24 11:47 Pulse 97 01/09/24 11:47 BP 140/78 H 01/09/24 11:47 Pulse Ox 97 01/09/24 11:47 Oxygen Delivery Method Room Air 01/09/24 11:47 BMI result Body Mass Index 34.5 Const General: comfortable and no acute distress Nutritional Appearance: obese Orientation/consciousness: patient oriented x3 Chest Other: Left lower chest wall tenderness. Chest palpation & inspection: normal inspection of the chest and no crepitus Resp Effort & Inspection: normal respiratory effort and able to speak in complete sentences Auscultation: clear to auscultation bilaterally GI Inspection: Yes Abdominal panniculus present and Yes obesity Neuro General: patient oriented x3, gait normal and moves all extremities Psych Speech and movement: Normal speech and movement present Assessment & Plan Assessment & Plan (1) Cough in adult: Code(s): R05.9 - Cough, unspecified Plan: - OTC cough medicine - Acetaminophen for pain relief. - Chest Xray. Orders: Orders XR chest 2V Today R05.9 - Cough, unspecified Medications: New benzonatate 100 mg PO TID 90 caps 0RF R05.9 - Cough, unspecified Coding Level of Care Code Est Pt Level 3 (36435) Diagnoses Cough in adult R05.9 Time Spent (min) 15
== END 2024-01-09 12:34 | disposition home or self-care (01) ==
PROVIDERS: PCP Nurse Practitioner Family; Visit Provider Nurse Practitioner Family
DX: R05.9 Cough, unspecified (principal)
CPT/HCPCS: 99213

== ENCOUNTER 2024-01-09 12:16 | Outpatient (REF) | payer OTHER, SELFPAY ==
--- NOTE | ~2024-01-09 | XR_ITS ---
EXAMINATION: XR CHEST CLINICAL INFORMATION: Cough, unspecified COMPARISON: Chest 09/19/2022 TECHNIQUE: 2 views of the chest were obtained. FINDINGS: No significant abnormality is noted involving the heart, lungs, mediastinum or soft tissues. There is a healed fracture of the right eighth posterior rib. XR/XR chest 2V IMPRESSION: No acute cardiopulmonary disease.
== END 2024-01-09 12:17 | disposition home or self-care (01) ==
LOC: HO.HMGCX 12:16
PROVIDERS: Visit Provider Nurse Practitioner Family
DX: R05.9 Cough, unspecified (principal)
CPT/HCPCS: 71046

== ENCOUNTER 2024-02-25 06:20 | Outpatient (REF) | payer OTHER, SELFPAY | END 2024-02-25 06:21 | disposition home or self-care (01) | LOC: CF 06:20 | PROVIDERS: Visit Provider Anesthesiology | DX: Z13.89 Encounter for screening for other disorder (principal) ==

== ENCOUNTER 2024-03-12 13:48 | Outpatient (AMB) | payer OTHER, SELFPAY ==
[2024-03-12 13:50] VITALS: BP 140/78; PULSE 79; O2SAT 98; BMI 35.7
--- NOTE | 2024-03-12 13:50 | MHC.PC.OV ---
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 Required: No Allergies No Known Allergies Allergy (Verified 03/16/24 06:16) Medication List - Last Reconciled 03/16/24 by Brock Dougherty MD acetaminophen 1,000 mg (2 x 500 mg) PO Q6H PRN albuterol sulfate 90 mcg/actuation 2 puffs inhalation Q6H PRN benzonatate 100 mg PO TID blood pressure monitor As directed blood pressure monitor As directed cholecalciferol (vitamin D3) 25 mcg PO DAILY cyclobenzaprine 5 mg PO BEDTIME diclofenac sodium 1% (Voltaren Arthritis Pain) 2 grams topical QID dicyclomine 10 mg PO TID PRN hydrochlorothiazide 12.5 mg PO DAILY hydroxyzine HCl 25 mg PO TID PRN ibuprofen 600 mg PO Q8H PRN lidocaine 5% 1 patch topical DAILY losartan 25 mg PO DAILY meclizine 25 mg PO DAILY PRN psyllium husk (with sugar) 2.5 gram (Metamucil Fiber Thin) 2 wafers PO DAILY rosuvastatin 5 mg PO DAILY sennosides (senna) 17.2 mg (2 x 8.6 mg) PO DAILY 10 days sertraline 100 mg PO DAILY tadalafil 20 mg PO ONCE PRN 30 days tadalafil 5 mg PO DAILY 90 days Tobacco use date assessed: 10/15/23 Dental Screening Dental Screen Date: 10/15/23 HPI Follow Up HPI Details 54-year-old male presents to the office to discuss his chronic medical conditions. Patient comes to the office along with his young son. He is giving 3 months history of anosmia. Patient reports that he does not have smell or taste symptoms for the past 3 months. He has been tested negative for COVID but had the influenza in December of 2023. Reports he can not smell perfume or taste any food. His appetite has increased. Patient is taking Zoloft at half the prescribed dosage. Patient has long history of lower back pain. 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 Patient is requesting a refill on cyclobenzaprine. He has chronic low back pain, symptoms usually starting in the lower back radiating into the leg. He is able to function and do activities of daily living. [facility] Medical History (Updated 03/16/24 @ 06:20 by Brock Dougherty MD) Moderate major depression, single episode Disc degeneration, lumbar Borderline hypertension Cough with exposure to COVID-19 virus Surgical History H/O colonoscopy History of pneumothorax Family History Mother Diabetes Hypertension Rheumatoid arthritis Father Dementia Cancer Maternal Grandfather Prostate CA Maternal Aunt Stomach cancer Social History Housing: House Alcohol intake: current Alcohol intake frequency: a few times a week Alcohol type: beer Patient Tobacco Use Status: Current someday Tobacco user Tobacco use type: Cigarette Cigarettes Per Day: 8 Years Smoked: 3 e-Cigarette/Vaping Use: Never Used Second Hand Smoke Exposure: Yes service: No Current occupational status: unemployed Cognitive needs: No Hearing needs: No Vision needs: Yes (glasses) Questionnaire Thrive Questionnaire Date Thrive assessed: 10/15/23 AUDIT C Alcohol Use Questionnaire (AUDIT-C) 1. How often do you have a drink containing alcohol?: 2-4 times a month 2. How many drinks containing alcohol do you have on a typical day when you are drinking?: 1 or 2 Total Score: 2 BRENDA-7 AMB Questionnaire BRENDA-7 Date BRENDA - 7 assessed: 10/15/23 Source: Developed by Drs. Amari Ruelas, Abbie Bella, Barrie Hopkins and colleagues, with an educational aspen from [employer]. Physical exam (Primary Care) Vital Signs: Last Vital Signs Pulse 79 03/12/24 13:50 BP 140/78 H 03/12/24 13:50 Pulse Ox 98 03/12/24 13:50 Oxygen Delivery Method Room Air 03/12/24 13:50 Care Plan Goal for BP management: Blood pressure is in range. Continue current medications. BMI result Body Mass Index 35.7 BMI Assessment/Plan discussion: High (1 lb per week weight loss suggested.) BMI High, discussed plan: lifestyle, weight reduction and dietary Tobacco/Smoking Status: Tobacco use Status Tobacco use date assessed 10/15/23 03/12/24 13:55 Patient Tobacco Use Status Current someday Tobacco 03/12/24 13:55 Tobacco use type Cigarette 03/12/24 13:55 e-Cigarette/Vaping Use Never Used 03/12/24 13:55 Thrive Assessment: Date of Thrive Assessment Date Thrive assessed 10/15/23 03/12/24 13:55 Const General: cooperative and healthy appearing Nutritional Appearance: well nourished Orientation/consciousness: patient oriented x3 Limitations: no limitations HENMT Head: Yes normal to inspection Eyes General: appearance normal, both eyes and all related structures Neck Neck: Yes normal visual inspection Chest Chest palpation & inspection: normal palpation of entire chest wall Resp Effort & Inspection: normal respiratory effort Neuro General: patient oriented x3 Assessment and Plan Assessment & Plan (1) Anosmia: Code(s): R43.0 - Anosmia Plan: Physical exam was unremarkable. Patient insists that he has no symptoms of smell or taste. A referral for ENT has been made to rule out any DNS or nasal polyps. (2) Moderate major depression, single episode: Code(s): F32.1 - Major depressive disorder, single episode, moderate Plan: Patient is taking a lower dose of Zoloft than prescribed. He believes his symptoms are controlled with this medication at the current dosage. (3) Disc degeneration, lumbar: Code(s): M51.36 - Other intervertebral disc degeneration, lumbar region Plan: Cyclobenzaprine called in. Patient was encouraged to exercise every day including physical therapy and stretching of the lower back. (4) Hyperlipidemia: Code(s): E78.5 - Hyperlipidemia, unspecified Plan: Blood work will be ordered. Orders: Referrals Ear/Nose/Throat Referral R43.0 - Anosmia Medications: Refilled cyclobenzaprine 5 mg PO BEDTIME 20 tabs 0RF hydrochlorothiazide 12.5 mg PO DAILY 90 caps 1RF I10 - Essential (primary) hypertension Coding Level of Care Code Est Pt Level 4 (44264) Complex EM visit Add On G2211 Diagnoses Anosmia R43.0 Moderate major depression, single episode F32.1 Disc degeneration, lumbar M51.36 Hyperlipidemia E78.5
== END 2024-03-12 14:37 | disposition home or self-care (01) ==
PROVIDERS: PCP Nurse Practitioner Family; Visit Provider Internal Medicine
DX: R43.0 Anosmia (principal); F32.1 Major depressive disorder, single episode, moderate; M51.36 Other intervertebral disc degeneration, lumbar region; E78.5 Hyperlipidemia, unspecified
CPT/HCPCS: 99214; G2211

== ENCOUNTER 2024-04-01 09:17 | Outpatient (REF) | payer OTHER, SELFPAY ==
[2024-04-01 10:41] LABS: Hematocrit 45.2 % (42.0-52.0); Hemoglobin 15.4 g/dl (14.0-18.0); Mean Corpuscular HGB Conc 34.1 g/dl (31.0-36.0); Mean Corpuscular Hemoglobin 31.4 pg (27.0-33.0); Mean Corpuscular Volume 92.1 fL (80.0-98.0); Mean Platelet Volume 11.1 fL (9.4-12.4); Platelet Count 214 X10*3/uL (160-400); Red Blood Count 4.91 X10*6/uL (4.60-5.80); Red Cell Distribution Width 12.4 % (11.0-16.0); White Blood Count 8.2 X10*3/uL (4.8-10.8)
[2024-04-01 10:56] LABS: Appearance Urine Clear; Color Urine Yellow; Glucose Urine UA Negative (Negative); Leukocyte Esterase Urine Negative (Negative); Nitrite Urine Negative (Negative); Urine Blood Negative (Negative); Urine Ketones Negative (Negative); Urine Protein Negative (Neg-Trace)
[2024-04-01 11:27] LABS: Alanine Aminotransferase 23 U/L (0-40); Alkaline Phosphatase 91 U/L (39-117); Anion Gap 14 (12-20); Aspartate Amino Transferase 21 U/L (5-37); Bilirubin Direct 0.1 mg/dL (0.0-0.5); Bilirubin Total 0.4 mg/dL (0.0-1.0); Blood Urea Nitrogen 10 mg/dL (9-16); Calcium 9.4 mg/dL (8.4-10.2); Carbon Dioxide 24 mmol/L (22-29); Chloride 106 mmol/L (96-108); Cholesterol 255 mg/dL (<200); Estimated Glomerular Filt Rate > 60; Glucose Random 106 mg/dL (60-115); HDL Cholesterol 44 mg/dL (>40); LDL Cholesterol Calculated 148 mg/dL (<100); Potassium 4.7 mmol/L (3.3-5.1); Sodium 139 mmol/L (135-145); Total Protein 7.3 g/dL (6.5-8.0); Triglycerides 318 mg/dL (<150)
[2024-04-01 11:37] LABS: Thyroid Stimulating Hormone 1.06 uIU/mL (0.32-4.0)
== END 2024-04-01 09:18 | disposition home or self-care (01) ==
LOC: HO.LAB 09:17
PROVIDERS: PCP Internal Medicine; Visit Provider Internal Medicine
DX: M54.2 Cervicalgia (principal); G89.4 Chronic pain syndrome
CPT/HCPCS: 36415; 80048; 80061; 80076; 81003; 84443; 85027

== ENCOUNTER 2024-06-24 09:30 | Outpatient (AMB) | payer OTHER, SELFPAY ==
--- NOTE | 2024-06-24 09:36 | A.OFFPC_ITS ---
Vital Signs 06/24/24 09:38 Height 5 ft 8 in Weight 236 lb 4 oz BMI 35.9 BP 120/80 Blood Pressure Location Lt brachial Position Sitting Pulse 88 Pulse Source Pulse Oximeter Pulse Oximetry (%) 98 Oxygen Delivery Method Room Air Intake Visit Reasons: Annual Exam Intake Note: Patient is here today for a physical. Business Planning Analyst Required: Yes Business Planning Analyst Language: Bulgarian Information Interpreted: non-clinical & clinical Enterprise Systems Architect: Not Required per policy Accompanied by: Self / Same As Patient Allergies No Known Allergies Allergy (Verified 07/02/24 17:06) Medication List - Last Reconciled 07/02/24 by Brock Dougherty MD acetaminophen 1,000 mg (2 x 500 mg) PO Q6H PRN albuterol sulfate 90 mcg/actuation 2 puffs inhalation Q6H PRN benzonatate 100 mg PO TID blood pressure monitor As directed blood pressure monitor As directed cholecalciferol (vitamin D3) 25 mcg PO DAILY cyclobenzaprine 5 mg PO BEDTIME diclofenac sodium 1% (Voltaren Arthritis Pain) 2 grams topical QID dicyclomine 10 mg PO TID PRN fluticasone propionate 50 mcg/actuation (Flonase Allergy Relief) 1 spray intranasal DAILY hydrochlorothiazide 12.5 mg PO DAILY hydroxyzine HCl 25 mg PO TID PRN ibuprofen 600 mg PO Q8H PRN losartan 25 mg PO DAILY meclizine 25 mg PO DAILY PRN meloxicam 15 mg PO DAILY psyllium husk (with sugar) 2.5 gram (Metamucil Fiber Thin) 2 wafers PO DAILY rosuvastatin 10 mg PO DAILY sennosides (senna) 17.2 mg (2 x 8.6 mg) PO DAILY 10 days sertraline 100 mg PO DAILY tadalafil 20 mg PO ONCE PRN 30 days tadalafil 5 mg PO DAILY 90 days Tobacco use date assessed: 06/24/24 Dental Screening Dental Screen Date: 10/15/23 HPI Annual Exam HPI Details Patient presents to the office requesting an annual physical exam. In addition, patient continues to report anosmia. Rather than no smell, he now complains of an ammonia like smell when he is near food. He is awaiting an ENT appointment that is scheduled for the end of September. Reports no symptoms of nasal discharge or headaches. No fevers or chills. Continues to have intermittent low back pain due to chronic disc disease. Patient was requesting small quantities of anti-inflammatory and muscle relaxant to relieve him of discomfort during bad days. Not working due to the back pain. Depression symptoms are stable. Patient is taking the sertraline. Able to function and do activities of daily living. Due to poor dietary habits, patient is gaining weight. [facility] Medical History Anosmia Class 2 severe obesity with body mass index (BMI) of 35 to 39.9 with serious comorbidity Moderate major depression, single episode Disc degeneration, lumbar Borderline hypertension Cough with exposure to COVID-19 virus Surgical History H/O colonoscopy (~05/15/22) History of pneumothorax Family History Mother Diabetes Hypertension Rheumatoid arthritis Father Dementia Cancer Maternal Grandfather Prostate CA Maternal Aunt Stomach cancer Social History Housing: House Alcohol intake: current Alcohol intake frequency: a few times a week Alcohol type: beer Patient Tobacco Use Status: Current someday Tobacco user Tobacco use type: Cigarette Cigarettes Per Day: 8 Years Smoked: 3 e-Cigarette/Vaping Use: Never Used Second Hand Smoke Exposure: Yes service: No Current occupational status: unemployed Cognitive needs: No Hearing needs: No Vision needs: Yes (glasses) Questionnaire PHQ-9 Over the last 2 weeks, how often have you been bothered by any of the following problems? 1. Little interest or pleasure in doing things: not at all 2. Feeling down, depressed, or hopeless: nearly every day 4. Feeling tired or having little energy: nearly every day 5. Poor appetite or overeating: nearly every day Depression Screening Interpretation: Positive Depression Screening Done: Yes Source: Developed by Drs. Amari Ruelas, Abbie Bella, Barrie Hopkins and colleagues, with an educational aspen from [employer]. Thrive Questionnaire Date Thrive assessed: 06/24/24 I am a: Patient What is your living situation today?: I choose not to answer this question Within the past 12 months, did the food you bought not last and you didn't have the money to get more?: I choose not to answer this question Within the past 12 months, did you worry whether your food would run out before you got money to buy more?: I choose not to answer this question Do you have trouble paying for medicines?: I choose not to answer this question Do you have trouble getting transportation to medical appointments?: No Do you have trouble paying your heating and electricity bill?: No Do you have trouble taking care of your child, family member or friend?: No Do you have trouble with day-to-day activities such as bathing, preparing meals, shopping, managing finances, etc.?: No Are you currently unemployed and looking for a job?: No Are you interested in more education?: No Please select the resources that you would like help with: None Currently or been in a relationship where the following occur: I choose not to answer THRIVE Score: 0 AUDIT C Alcohol Use Questionnaire (AUDIT-C) 1. How often do you have a drink containing alcohol?: Never Total Score: 0 BRENDA-7 AMB Questionnaire BRENDA-7 Date BRENDA - 7 assessed: 06/24/24 Feeling nervous, anxious, or on edge: 0 = Not at all Not being able to stop or control worryin = More than half the days Worrying too much about different things: 3 = Nearly every day Trouble relaxin = More than half the days Being so restless that it is hard to sit still: 2 = More than half the days Becoming easily annoyed or irritable: 0 = Not at all Feeling afraid as if something awful might happen: 0 = Not at all Total BRENDA-7 score (0-4 normal; 5-9 mild; 10-14 moderate; 15-21 severe): 9 Source: Developed by Drs. Amari Ruelas, Abbie Bella, Barrie Hopkins and colleagues, with an educational aspen from [employer]. Physical exam (Primary Care) Vital Signs: Last Vital Signs Pulse 88 06/24/24 09:38 BP 120/80 06/24/24 09:38 Pulse Ox 98 06/24/24 09:38 Oxygen Delivery Method Room Air 06/24/24 09:38 BMI result Body Mass Index 35.9 Tobacco/Smoking Status: Tobacco use Status Tobacco use date assessed 06/24/24 06/24/24 09:43 Patient Tobacco Use Status Current someday Tobacco 06/24/24 09:43 Tobacco use type Cigarette 06/24/24 09:43 e-Cigarette/Vaping Use Never Used 06/24/24 09:43 Depression Screening Interpretation: Positive Thrive Assessment: Date of Thrive Assessment Date Thrive assessed 06/24/24 06/24/24 09:43 Currently or been in a relationship where the following occur: I choose not to answer Const General: cooperative and healthy appearing Nutritional Appearance: well nourished Orientation/consciousness: patient oriented x3 Limitations: no limitations HENMT Head: Yes normal to inspection Eyes General: appearance normal, both eyes and all related structures Neck Neck: Yes normal visual inspection Chest Chest palpation & inspection: normal palpation of entire chest wall Resp Effort & Inspection: normal respiratory effort Neuro General: patient oriented x3 Office Procedures Flu Questionnaire Does the patient have a severe egg allergy?: No Does the patient have severe life threatening allergies?: No Does the patient have a fever or illness today?: No Has the patient ever had Guillain-Moody Syndrome?: No Has the patient ever had any past reaction to a flu shot?: No Immunizations Fluarix Triv [id number] (PF) 45 mcg (15 mcg x 3)/0.5 mL IM syringe Performing Provider: Brock Dougherty MD Performing Location: [facility] Administered by: ERIC Jenkins on 06/24/24 10:17 Dose Route Admin Location Dispensed Lot Number Expiration Date [facility] Team Primary Care Physician 0.5 mL IM Left Deltoid 0.5 mL [id number] 02/01/25 [id number] Enject VIS Given Date VIS Provided VIS Publication Date 06/24/24 Single Vaccine 21 Eligibility Eligibility Date Funding Source Not [facility] Eligible 06/24/24 Private Coding Level of Care Code Est Pt Level 4 (56258) Est Pt Prev Care 40-64y(99695) Diagnoses Class 2 severe obesity with body mass index (BMI) of 35 to 39.9 with serious comorbidity E66.812; E66.01 Moderate major depression, single episode F32.1 Hypertension I10 Spondylosis of lumbar region without myelopathy or radiculopathy M47.816 Annual physical exam Z00.00 Anosmia R43.0 Assessment & Plan Assessment & Plan (1) Class 2 severe obesity with body mass index (BMI) of 35 to 39.9 with serious comorbidity: Code(s): E66.812 - Obesity, class 2; E66.01 - Morbid (severe) obesity due to excess calories Category: Medical Plan: Counseling on diet and exercise done. (2) Moderate major depression, single episode: Code(s): F32.1 - Major depressive disorder, single episode, moderate Category: Medical Plan: Continue current medications. (3) Hypertension: Code(s): I10 - Essential (primary) hypertension Category: Medical Plan: Blood pressure is in range. (4) Spondylosis of lumbar region without myelopathy or radiculopathy: Code(s): M47.816 - Spondylosis without myelopathy or radiculopathy, lumbar region Category: Medical Plan: Meloxicam and Flexeril has been ordered. Patient was advised to lose weight. (5) Annual physical exam: Code(s): Z00.00 - Encounter for general adult medical examination without abnormal findings Plan: Blood work reviewed. Received his flu shot. Current on colonoscopy screening guidelines. (6) Anosmia: Code(s): R43.0 - Anosmia Category: Medical Plan: A CT of the sinuses will be ordered. Patient was encouraged to keep the ENT appointment. Flonase for symptomatic relief has been suggested. Orders: Orders Influenza [id number] Immunization 06/24/24 Z23 - Encounter for immunization CT sinus wo IV con 06/24/24 R43.0 - Anosmia Medications: New meloxicam 15 mg PO DAILY 14 tabs 0RF fluticasone propionate 50 mcg/actuation (Flonase Allergy Relief) administer into each nostril 1 spray intranasal DAILY 9.9 mL 1RF Refilled cyclobenzaprine 5 mg PO BEDTIME 20 tabs 0RF
[2024-06-24 09:38] VITALS: BP 120/80; PULSE 88; O2SAT 98; BMI 35.9
== END 2024-06-24 10:21 | disposition home or self-care (01) ==
PROVIDERS: PCP Internal Medicine; Visit Provider Internal Medicine
DX: Z00.00 Encounter for general adult medical examination without abnormal findings (principal); F32.1 Major depressive disorder, single episode, moderate; E66.01 Morbid (severe) obesity due to excess calories; Z68.35 Body mass index [BMI] 35.0-35.9, adult; M47.816 Spondylosis without myelopathy or radiculopathy, lumbar region; I10 Essential (primary) hypertension; R43.0 Anosmia

== ENCOUNTER → 2024-06-24 09:30 | Outpatient (BNVA) | payer OTHER, SELFPAY | PROVIDERS: PCP Internal Medicine; Visit Provider Internal Medicine | DX: Z00.01 Encounter for general adult medical examination with abnormal findings (principal); Z23 Encounter for immunization; M47.816 Spondylosis without myelopathy or radiculopathy, lumbar region; F32.1 Major depressive disorder, single episode, moderate; R43.0 Anosmia; E66.01 Morbid (severe) obesity due to excess calories; Z68.35 Body mass index [BMI] 35.0-35.9, adult; Z71.3 Dietary counseling and surveillance | CPT/HCPCS: 90471; 90656; 99212; 99396 ==

== ENCOUNTER 2024-08-03 14:18 | Outpatient (AMB) | payer OTHER, SELFPAY ==
[2024-08-03 15:10] VITALS: BP 120/80; PULSE 95; O2SAT 97
--- NOTE | 2024-08-03 15:10 | MHC.OFFWIV ---
Intake Vital Signs 08/03/24 15:10 Weight 238 lb BP 120/80 Blood Pressure Location Rt brachial Position Sitting Pulse 95 Pulse Source Pulse Oximeter Pulse Oximetry (%) 97 Oxygen Delivery Method Room Air Intake Visit Reasons: EP-no taste, no smell, cough, body weakness Intake Note: Patient here for loss of taste,smelland weakness that has been present for awhile . Patient Tobacco Use Status: Current someday Tobacco user Allergies No Known Allergies Allergy (Verified 08/03/24 15:13) Do you need a note to return to daycare/school/sports/work: No HPI HPI Comments History of Present Illness Details History of Present Illness - The patient is a 54-year-old male presenting with concerns of recurrent respiratory infections. - Reports indicate multiple flu-like illnesses occurring around August-September, with subsequent anosmia and ageusia. - [facility] healthcare evaluations indicated an early stage of infection, managed partially with antibiotics. - ENT referral was made by primary care due to lingering anosmia, ageusia, and cough. - Symptom history includes instances of severe coughing attacks with dyspnea. - Additional concerns involve generalized weakness, strange taste/smell perceptions, and low sexual desire. - Treatments include Flonase, with plans for further ENT evaluation. - patient also stating he feels randomly short of breath, was a smoker for a few years but is currently not smoking. States he has never done pulmonary function tests. 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 Physical Exam General: Cooperative, healthy appearing, comfortable, no acute distress and well developed Orientation: Patient oriented x3 Limitations: No limitations Head: Normal to inspection Ears: Hearing grossly normal bilaterally Nose: Normal external nose present Face and sinus: Normal facial exam Eyes: Appearance normal, both eyes and all related structures Neck: Normal visual inspection and Yes full ROM Respiratory: Normal respiratory effort and able to speak in complete sentences. Skin: No rashes or lesions noted Neuro: Patient oriented x3 Extremities: Normal to inspection [facility] Medical History Anosmia Class 2 severe obesity with body mass index (BMI) of 35 to 39.9 with serious comorbidity Moderate major depression, single episode Disc degeneration, lumbar Borderline hypertension Cough with exposure to COVID-19 virus Surgical History H/O colonoscopy (~05/15/22) History of pneumothorax Family History Mother Diabetes Hypertension Rheumatoid arthritis Father Dementia Cancer Maternal Grandfather Prostate CA Maternal Aunt Stomach cancer Social History Housing: House Alcohol intake: current Alcohol intake frequency: a few times a week Alcohol type: beer Patient Tobacco Use Status: Current someday Tobacco user Tobacco use type: Cigarette Cigarettes Per Day: 8 Years Smoked: 3 e-Cigarette/Vaping Use: Never Used Second Hand Smoke Exposure: Yes service: No Current occupational status: unemployed Cognitive needs: No Hearing needs: No Vision needs: Yes (glasses) Review of Systems Const All systems reviewed & are unremarkable except as noted in HPI and below Physical Exam Vital Signs: Last Vital Signs Pulse 95 08/03/24 15:10 BP 120/80 08/03/24 15:10 Pulse Ox 97 08/03/24 15:10 Oxygen Delivery Method Room Air 08/03/24 15:10 Assessment & Plan Assessment & Plan (1) Anosmia: Code(s): R43.0 - Anosmia Plan: Plan 1. Encouraged patient to attend his scheduled ENT appointment, including getting the prescheduled CT scan of the sinuses, is crucial to reiterate any persistent or further issues. Given episodes of significant respiratory distress, a pulmonary function test is something he may want to discuss with his PCP to determine any underlying respiratory disorders or insufficiencies. Persistent weakness and hypolibido are to be further assessed through the primary care provider. Patients express dissatisfaction with current care, suggesting a possible switch to a more responsive healthcare provider. Continued adherence to medication like Flonase is encouraged, with an ENT reassessment to understand ongoing or unaffected symptoms. Patient was informed and verbally consented to the use of an ambient scribe for clinic note documentation during this visit. Coding Level of Care Code Est Pt Level 4 (16620) Diagnoses Anosmia R43.0
== END 2024-08-03 15:55 | disposition home or self-care (01) ==
PROVIDERS: PCP Internal Medicine; Visit Provider Physician Assistant
DX: R43.0 Anosmia (principal)

== ENCOUNTER → 2024-08-03 14:18 | Outpatient (BNVA) | payer OTHER, SELFPAY | PROVIDERS: PCP Internal Medicine; Visit Provider Physician Assistant | DX: R43.0 Anosmia (principal) | CPT/HCPCS: 99212 ==

== ENCOUNTER 2024-09-25 14:43 | Outpatient (REF) | payer OTHER, SELFPAY ==
--- NOTE | ~2024-09-25 | CT_ITS ---
CLINICAL HISTORY: R43.0 - Anosmia CT sinuses without contrast Comparison: None Findings: Maxillary, sphenoid, ethmoid and frontal sinuses are clear. Ostiomeatal units are patent. The nasal airways are patent. No nasal polyps or masses. Orbits are unremarkable. Bony erosion of the left anterior aspect of the maxilla adjacent of the nasal spine possibly related to chronic dental infection. IMPRESSION: No significant paranasal sinus disease. There is a focus of erosion with subjacent lucency involving the anterior aspect of the maxilla adjacent to the nasal spine, likely related to prior or chronic dental infection. This document has been electronically signed by: Mariusz Hercules MD on 09/28/2024 10:47:19
--- OUTSIDE RECORDS SUMMARY | 2024-09-25 15:01 | XMS_ITS | Clinical Summary ---
Author Organization [facility] Address [address] [place] [address] Care Team Providers Care Cw Operator Name Role Phone Unavailable Primary Care Provider Unavailabl e Source Comments PLEASE NOTE, if this patient is a minor, it may be UNLAWFUL to discuss sensitive information that is contained in these records (such as FAMILY PLANNING, MENTAL HEALTH or SUBSTANCE ABUSE) with the minor patient's parent or other person without the patient's specific authorization.[facility] Allergies No known active allergies Medications hydrocortisone 2.5 % ointmentIndication s:Itch of skin Apply topically 2 (two) times daily 28.35 g 1 9 Active cetirizine (ZYRTEC) 10 mg tabletIndications: Environmental allergies Take 1 Tab by mouth once daily 30 Tab 2 0 Active diphenhydrAMINE HCL (BENADRYL) 25 mg capsuleIndications :Insomnia, unspecified type Take 1 Cap by mouth every 6 (six) hours as needed for itching 30 Cap 2 0 Active cyclobenzaprine (FLEXERIL) 10 mg tabletIndications: Chronic midline low back pain without sciatica Take 1 Tab by mouth 3 (three) times daily as needed for muscle spasms 60 Tab 1 0 Active gemfibroziL (LOPID) 600 mg tabletIndications: High triglycerides Take 1 Tab by mouth 2 (two) times daily before a meal 60 Tab 3 0 Active FLUoxetine (PROZAC) 20 mg tabletIndications: Anxiety Take 1 Tab by mouth every morning 30 Tab 0 Active meloxicam (MOBIC) 7.5 mg tabletIndications: Chronic midline low back pain without sciatica Take 1 Tab by mouth once daily 30 Tab 1 0 Active naproxen (NAPROSYN) 500 mg tabletIndications: Acute nonintractable headache, unspecified headache type Take 1 Tab by mouth 2 (two) times daily with a meal 60 Tab 0 Active acetaminophen (TYLENOL) 500 mg capsuleIndications :Upper respiratory tract infection, unspecified type Take 1 Cap by mouth every 6 (six) hours as needed for pain 40 Cap 0 Active benzonatate (TESSALON) 200 mg capsuleIndications :Cough Take 1 Capsule by mouth 3 (three) times daily as needed for cough 90 Capsule 1 Active dextromethorphan-g uaifenesin (ROBAFEN DM MAXLIQUID) 10-200 mg/5 mL liquidIndications: Cough,Upper respiratory tract infection, unspecified type Take 10 mL by mouth every 4 to 6 (four to six) hours as needed for cough 236 mL 1 Active Active Problems Problem Noted Date Diagnosed Date Suspected COVID-19 virus infection 04/21/2020 Closed fracture of one rib of left side 11/23/19 16 Overview (11/23/2015): Left 10th rib non displaced fx may 2015 -[facility] Right shoulder injury 11/23/2015 Overview (11/23/2015): [facility] may 2015 xray ord by [facility]- normal film (see rad tab) Insomnia 11/23/2015 Overview (11/23/2015): Sep 2015: Sunil mendez #30 no refill ref mental health counseling Right shoulder pain 06/01/2015 Overview (06/01/2015): 05/26/15:[facility] normal [facility]ray of right shoulder CPE WNL today 03/23/2015 Overview (08/10/2016): Physical done 08/10/16 HSV-2 (herpes simplex virus 2) infection 015 Overview (04/14/2016): 04/06/16- saw uro- plan cont episodic tx with antivirals- saw Ritu Purvis MD Dx at uro # [phone] tx with valcyclovir 1000mg po bid x 7 days 03/25/15: returned to uro , saw Carl Purvis MD; HSVr esolved , n Further outbreaks SIRS (systemic inflammatory response syndrome) ( [facility]) 02/03/2015 Overview (02/03/2015): [facility] er 01/15/15: pres with gen weakness.dizzy.n/v/CHAIDEZ. CT Neg for acute path. [place] better with IVF and meclizine. + fhx of CVA MRI done, dx with SIRS. LP neg for infection H/O dizziness 01/21/2015 Overview (01/21/2015): [facility] ER 01/15/15: ER for CHAIDEZ/n/v/dizziness: CT neg for acute path. Likely peripheral rather than central improved with meclizine and IVF; + FHX of CVA, pt req MRI of brainPt was found to be having SIRS with mild and gen weakness at admission which was suspected to be viral in etiology, SIRS resolving after IVF and supportive care Urinary dribbling 09/21/2014 Overview (02/10/2015): Refer to uro ? bph 09/2014 No show [facility] 12/13/14 # [phone] Saw uro group 02/03/15 Claudine Fernandes NP # [phone] dx with HSV tx with Vatrex 1000mg po bid x 10 days#20 no refills Other and unspecified hyperlipidemia 09/09/2014 Overview (09/09/2014): Lab Results Component Value Date TRIGLYC 429* 09/08/2014 CHOL 242* 09/08/2014 HDL 47 09/08/2014 LDL 110* 09/08/2014 Referred to Juan M for diet mod x 6 months, 09/09/14 LBP (low back pain) 09/05/2014 Overview (10/28/2014): rodrigo rxed flexerill: refer to PT and films ordered: 09/29/14 to start pt: film report re 2/18/15: old fx of L1 seen again without chg from 06/2012: otherwise normal exam Hi!! Skip Dominique pt care representitive for [facility] came in wanting to personally drop off pts evaluation. Wanting to introduce himself to you. Please call Skip Dominique at [phone] TC to re hab sultana lm req him to return Notes rec from [facility] michael Mckeon MSPT # [phone] plan 2x week x 4-6 weeks care 10/28/14: nots received Jolanta Cabrera, DPT # [id number] plan 2 x week x 4-6 weeks Resolved Problems Problem Noted Date Diagnosed Date Resolved Date Upper respiratory tract infection 04/21/2020 03/24/2021 Fracture of orbital floor, b low-out, left, closed/MAY 2015 11/23/2015 08/14/2016 Overview (11/23/2015): Confirm by [facility] up with Dr. Rodriguez (Maxillofacial surgeon 06/01/15 Dr. Ramirez for orbital fracture at @4:00pm Immunizations Name Administration Dates Next Due Flu, Preservative Free 09/28/2019,07/09/2017 Hep B, Adult/Adol (ENERGIX/RECOMBIVAX) 6,01/19/2016,03/30/2015 INFLUENZA, SEASONAL, INJECTABLE 08/10/2016 PPD 02/19/2018 TDAP 03/23/2015 Family History Medical History Relation Name Comments Heart Problems Father 75yr cabg 60's Stroke Father 75yr cva x 3 in 50's cabg in 60's Diabetes Maternal Grandfather Arthritis Mother 70 Asthma Mother 70 Cancer Mother 70 Diabetes Mother 70 High Cholesterol Mother 70 Hypertension Mother 70 Mental illness Mother 70 Relation Name Status Comments Brother 1 htn Alive Father 75yr Maternal Grandfather Maternal Grandmother alz Mother 70 Alive Paternal Grandmother alz Sister 2 well Alive Social History Tobacco Use Types Packs/Day Years Used Date Smoking Tobacco: Former Smokeless Tobacco: Never Tobacco Cessation:Counseling Given: Yes Comments:5 cigarretes a day Alcohol Use Standard Drinks/Week Comments Yes 0 (1 standard drink = 0.6 oz pur e alcohol) socially Social Connections Answer Date Recorded Social Connections and Isolation 0 03/28/2019 Financial Resource Strain Answer Date R ecorded Financial Resource Strain 0 2018 Stress Answer Date Recorded Stress 0 03/28/2019 Physical Activity Answer Date Recorded Physical Activity 0 03/28/2019 Food Insecurity Answer Date Recorded Food 0 03/28/2019 Transportation Needs Answer Date Record ed Transportation 0 03/28/2019 Housing Stability Answer Date Recorded Housing 0 03/28/2019 Safety and Environment Answer Date Tristian rded Safety 0 03/28/2019 Utilities Answer Date Recorded Utilities 0 03/28/2019 Employment Answer Date Recorded Employment 0 03/28/2019 Sex and Gender Information Value Date Recorded Sex Assigned at Male 07/09/2017 9:30 AM PST Legal Sex Male 1:40 PM PDT Gender Identity Male 07/09/2017 9:30 AM PST Sexual Orientation Straight 07/09/2017 9: 30 AM PST 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 Not on file Not on file Not on file Last Filed Vital Signs Vital Sign Reading Time Taken Comments Blood Pressure 140/92 09/28/2019 3:15 PM EST Pulse 75 09/28/2019 3:15 PM EST Temperature 37 ??C (98.6 ??F) 09/28/2019 3:15 PM EST Respiratory Rate 16 09/28/2019 3:15 PM EST Oxygen Saturation 95% 03/21/2016 11:34 AM EDT RA Inhaled Oxygen Concentration - - Weight 100.2 kg (221 lb) 09/28/2019 3:15 PM EST Height 170.2 cm (5' 7 ) 09/28/2019 3:15 PM EST Body Mass Index 34.61 09/28/2019 3:15 PM EST Plan of Treatment Not on file Insurance [employer] [place] [address] [facility] S[facility] NET D[employer]AL [facility]
--- OUTSIDE RECORDS SUMMARY | 2024-09-25 15:01 | XMS_ITS | Clinical Summary ---
Author Organization [facility] Address [address] [place] [address] Care Team Providers Care Manager Laboratory Name Role Phone Unavailable Primary Care Provider Unavailabl e Social History Tobacco Use Types Packs/Day Years Used Date Smoking Tobacco: Never Assessed Sex and Gender Information Value Date Recorded Sex Assigned at Not on file Legal Sex Male 2:56 PM EST Gender Identity Not on file Sexual Orientation Not on file Plan of Treatment Health Maintenance Due Date Last Done Comments DTaP,Tdap,and Td Vaccines (1 - Tdap) 1990 Hepatitis B Vaccines (1 of 3 - 19+ 3-dose series) 1990 Pneumococcal Vaccine: 50+ Ye ars (1 of 1 - PCV) 2021 Zoster Vaccines (1 of 2) 2021 Cholesterol Screening (Lipid Panel) 02/25/2024 Colorectal Cancer Screening: Colonoscopy 02/25/2024 Depression Screening 02/25/2024 HIV Screening 02/25/2024 Hepatitis C Screening 02/25/2024 Social Influencers of Health Screening 02/25/2024 COVID-19 Vaccine ( - 2023-2 5 season) 2024 Influenza Vaccine (#1) 2024 HIB Vaccines Aged Out No longer eligi ble based on patient's age to complete this topic HPV Vaccines Aged Out No longer eligi ble based on patient's age to complete this topic Hepatitis A Vaccines Aged Out No long er eligible based on patient's age to complete this topic IPV Vaccines Aged Out No longer eligi ble based on patient's age to complete this topic MMR Vaccines Aged Out No longer eligi ble based on patient's age to complete this topic Meningococcal ACWY Vaccine Aged Out N o longer eligible based on patient's age to complete this topic Meningococcal B Vacine Aged Out No lo nger eligible based on patient's age to complete this topic Pneumococcal Vaccine: Pediat rics (0 to 5 Years) and At-Risk Patients (6 to 64 Years) Aged Out No longer eligible b ased on patient's age to complete this topic RSV Immunization Patients Un eric 20 months Aged Out No longer eligible b ased on patient's age to complete this topic Varicella Vaccines Aged Out No longer eligible based on patient's age to complete this topic
== END 2024-09-25 14:44 | disposition home or self-care (01) ==
LOC: HO.CT 14:43
PROVIDERS: PCP Internal Medicine; Visit Provider Internal Medicine
DX: R43.0 Anosmia (principal)
CPT/HCPCS: 70486

== ENCOUNTER → 2024-09-25 14:45 | Outpatient (BNV) | payer OTHER, SELFPAY | PROVIDERS: PCP Internal Medicine; Visit Provider Radiology Vascular & Interventional Radiology | DX: R43.0 Anosmia (principal) | CPT/HCPCS: 70486 ==

== ENCOUNTER 2025-07-28 08:49 | Outpatient (REF) | payer OTHER, SELFPAY ==
[2025-07-28 12:22] LABS: Appearance Urine Clear; Glucose Urine UA Negative (Negative); PH 5.5 (5.0-9.0); Specific Gravity - Urine 1.020 (1.005-1.025); UMIC TRIGGER UA YES
[2025-07-28 12:26] LABS: Hematocrit 47.9 % (42.0-52.0); Hemoglobin 16.1 g/dl (14.0-18.0); Mean Corpuscular HGB Conc 33.6 g/dl (31.0-36.0); Mean Corpuscular Hemoglobin 30.7 pg (27.0-33.0); Mean Corpuscular Volume 91.4 fL (80.0-98.0); NRBC Abs Auto 0.000 X10*3/uL (0.0-0.012); NRBC Pct Auto 0.0 /100WBC (0.0-0.2); Platelet Count 213 X10*3/uL (160-400); Red Blood Count 5.24 X10*6/uL (4.60-5.80); White Blood Count 8.0 X10*3/uL (4.8-10.8)
[2025-07-28 13:03] LABS: Alanine Aminotransferase 44 U/L (0-40); Albumin Level 4.8 g/dL (3.5-5.0); Alkaline Phosphatase 100 U/L (39-117); Anion Gap 16 (12-20); Aspartate Amino Transferase 47 U/L (5-37); Blood Urea Nitrogen 7 mg/dL (9-16); Calcium 9.4 mg/dL (8.4-10.2); Carbon Dioxide 24 mmol/L (22-29); Chloride 103 mmol/L (96-108); Cholesterol 169 mg/dL (<200); Estimated Glomerular Filt Rate > 60; HDL Cholesterol 49 mg/dL (>40); Potassium 4.1 mmol/L (3.3-5.1); Sodium 139 mmol/L (135-145); Total Protein 7.9 g/dL (6.5-8.0); Triglycerides 202 mg/dL (<150)
[2025-07-28 13:12] LABS: Thyroid Stimulating Hormone 1.00 uIU/mL (0.32-4.0)
== END 2025-07-28 08:50 | disposition home or self-care (01) ==
LOC: HO.LAB 08:49
PROVIDERS: PCP Internal Medicine; Visit Provider Internal Medicine
DX: F41.1 Generalized anxiety disorder (principal); I10 Essential (primary) hypertension; F32.9 Major depressive disorder, single episode, unspecified; Z12.5 Encounter for screening for malignant neoplasm of prostate
CPT/HCPCS: 36415; 80048; 80061; 80076; 81001; 84153; 84443; 85027

== ENCOUNTER → 2025-07-28 08:49 | Outpatient (AMB) | payer OTHER, SELFPAY ==
--- NOTE | 2025-07-28 08:50 | MHC.PC.OV ---
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 Required: No Emergency Department Nurse: Not Required per policy Accompanied by: Self / Same As Patient Allergies No Known Allergies Allergy (Verified 08/02/25 15:32) Medication List - Last Reconciled 08/02/25 by Brock Dougherty MD acetaminophen 1,000 mg (2 x 500 mg) PO Q6H PRN atorvastatin 10 mg PO BEDTIME blood pressure monitor As directed blood pressure monitor As directed bupropion HCl XL (Wellbutrin XL) 300 mg (2 x 150 mg) PO QAM cholecalciferol (vitamin D3) 25 mcg PO DAILY hydrochlorothiazide 12.5 mg PO DAILY hydroxyzine HCl 50 mg (2 x 25 mg) PO TID PRN losartan 25 mg PO DAILY meclizine 25 mg PO DAILY PRN meloxicam 15 mg PO DAILY psyllium husk (with sugar) 2.5 gram (Metamucil Fiber Thin) 2 wafers PO DAILY quetiapine (Seroquel) 100 mg PO BEDTIME rosuvastatin 10 mg PO DAILY Tobacco use date assessed: 06/24/24 Dental Screening Dental Screen Date: 07/28/25 Did you have a dental visit in the last 12 months?: No Did you have a dental problem in the last 6 months where you did not have access to dental care?: No Was dental information given to patient?: No HPI Meds reviews HPI Details 55 yr old male requests a review of his meds via telehealth. Patient has major depression and his medications have been changed recently. Wants to get blood work to check his cholesterol etc. Not exercising or following any particular diet. Would like the medications he is taking reviewed. [facility] Medical History Anosmia Class 2 severe obesity with body mass index (BMI) of 35 to 39.9 with serious comorbidity Moderate major depression, single episode Disc degeneration, lumbar Borderline hypertension Cough with exposure to COVID-19 virus Surgical History H/O colonoscopy (~06/14/22) History of pneumothorax Family History Mother Diabetes Hypertension Rheumatoid arthritis Father Dementia Cancer Maternal Grandfather Prostate CA Maternal Aunt Stomach cancer Social History Housing: House Alcohol intake: current Alcohol intake frequency: a few times a week Alcohol type: beer Patient Tobacco Use Status: Current someday Tobacco user Tobacco use type: Cigarette Cigarette Packs Per Day: 0.5 Cigarettes Per Day: 5 Years Smoked: 3 e-Cigarette/Vaping Use: Never Used Second Hand Smoke Exposure: Yes service: No Current occupational status: unemployed Cognitive needs: No Hearing needs: No Vision needs: Yes (glasses) Questionnaire Thrive Questionnaire Date Thrive assessed: 06/24/24 BRENDA-7 AMB Questionnaire BRENDA-7 Date BRENDA - 7 assessed: 06/24/24 Source: Developed by Drs. Amari Ruelas, Abbie Bella, Barrie Hopkins and colleagues, with an educational aspen from [employer] Physical exam (Primary Care) Tobacco/Smoking Status: Tobacco use Status Tobacco use date assessed 06/24/24 07/28/25 08:52 Patient Tobacco Use Status Current someday Tobacco 07/28/25 08:52 Tobacco use type Cigarette 07/28/25 08:52 e-Cigarette/Vaping Use Never Used 07/28/25 08:52 Thrive Assessment: Date of Thrive Assessment Date Thrive assessed 06/24/24 07/28/25 08:52 Telehealth Telehealth Telehealth Platform: Telephone Location of provider rendering services: practice address Location of patient: address on file Patient Identification confirmed using: Name, : Yes Telehealth method: voice only Patient verbally consented to treatment: Yes Patient verbally consented to billing insurance company: Yes Patient informed of any privacy concerns related to visit: Yes Minutes spent on Phone/Video with Pt.: 15 Coding Level of Care Code Est Pt Level 4 (40359) Add On Problem Visit Only Diagnoses Generalized anxiety disorder F41.1 Hypertension I10 Assessment & Plan Assessment & Plan (1) Generalized anxiety disorder: Code(s): F41.1 - Generalized anxiety disorder Category: Medical Plan: Medications reviewed. (2) Hypertension: Code(s): I10 - Essential (primary) hypertension Category: Medical Plan: Blood work ordered Orders: Orders Lipid Panel 07/28/25 F41.1 - Generalized anxiety disorder, I10 - Essential (primary) hypertension Liver Panel 07/28/25 F41.1 - Generalized anxiety disorder, I10 - Essential (primary) hypertension Thyroid Stimulating Hormone 07/28/25 F41.1 - Generalized anxiety disorder, I10 - Essential (primary) hypertension Prostate Specific Antigen Scr 07/28/25 F41.1 - Generalized anxiety disorder, I10 - Essential (primary) hypertension UA and rflx microscopic 07/28/25 F41.1 - Generalized anxiety disorder, I10 - Essential (primary) hypertension Basic Metabolic Panel 07/28/25 F41.1 - Generalized anxiety disorder, I10 - Essential (primary) hypertension Complete Blood Count no Diff 07/28/25 F41.1 - Generalized anxiety disorder, I10 - Essential (primary) hypertension Medications: New bupropion HCl XL (Wellbutrin XL) 300 mg (2 x 150 mg) PO QAM 180 tabs 0RF quetiapine (Seroquel) 100 mg PO BEDTIME 90 tabs 0RF atorvastatin 10 mg PO BEDTIME 90 tabs 1RF Changed From hydroxyzine HCl 25 mg PO TID PRN 90 tabs 0RF anxiety F41.1 - Generalized anxiety disorder To hydroxyzine HCl 50 mg (2 x 25 mg) PO TID PRN 90 tabs 0RF anxiety F41.1 - Generalized anxiety disorder Refilled hydrochlorothiazide 12.5 mg PO DAILY 90 caps 1RF I10 - Essential (primary) hypertension rosuvastatin 10 mg PO DAILY 90 tabs 1RF losartan 25 mg PO DAILY 90 tabs 1RF I10 - Essential (primary) hypertension Discontinued diclofenac sodium 1% (Voltaren Arthritis Pain) apply to single elbow, wrist or hand; for hand includes palm/fingers/back of hand Discontinued Reason: Change Referral Type 2 grams topical QID 100 grams 0RF albuterol sulfate 90 mcg/actuation Discontinued Reason: Doctor's Order 2 puffs inhalation Q6H PRN 6.7 grams 0RF shortness of breath or wheezing dicyclomine Discontinued Reason: Doctor's Order 10 mg PO TID PRN 90 caps 3RF cramping fluticasone propionate 50 mcg/actuation (Flonase Allergy Relief) administer into each nostril Discontinued Reason: Change Referral Type 1 spray intranasal DAILY 9.9 mL 1RF sertraline Discontinued Reason: Doctor's Order 100 mg PO DAILY 90 tabs 1RF cyclobenzaprine Discontinued Reason: Change Referral Type 5 mg PO BEDTIME 20 tabs 0RF
--- OUTSIDE RECORDS SUMMARY | 2025-07-28 08:50 | XMS_ITS | Data Portability ---
Author Organization [place] [facility], Allergy Address [address] [address] Care Team Providers Care Loan Processor Name Role Phone JOHN STEVENS Primary Care Provider Assessment No assessment recorded. Plan of Treatment Reminders Order Date Submit Date Provider Last Modified By Organization Details Last Modified Time Details Appointments None record ed. Lab None record ed. Referral None record ed. Procedures None record ed. Surgeries None record ed. Imaging None record ed. Medication Orders None record ed. Patient TargetsNo targets recorded. Patient InstructionsNo instructions recorded. Reason for Referral None Reported. Results Created Date Observation Date Name Description Value Unit Range Abnormal Flag Note LastModifiedBy Organization Detail LastModifiedTime 09/30/1909/25/2024 CT, sinus es, w/o contr ast No observ ation record ed. [facility] (Medical Records) [address] [place] [address], [id number], 09/30/2024 11:23:14 09/30/1909/25/2024 CT, sinus es, w/o contr ast No observ ation record ed. [email or web address] Not Available 09/06 14:56:50 Result Notes None recorded. Problems Name Problem SNOMED Code Status Onset Date Resolution Date Notes Provider Name and Address Organization Details Recorded Time Sensory disorder of smell and/or taste 2158938669839 Active 2024 NERI Rodrigues MD [address], [address] [place] [facility] 09:16:12 Dental caries 29603184 Active 2024 NERI Rodrigues MD 100 [facility] 100, [place], [address], [facility] 09:24:56 Problem Notes None recorded. Procedures Surgical History Date Name Laterality Status Provider Name and Address Organization Details Recorded Time 09/30/2024 NasalEndos copy_DP completed NERI JACK MD 100 [facility] 100, [place], [address], [facility] 09/30/2024 09:26:53 Imaging Results None recorded. Procedure Notes None recorded. Medical Equipment None Reported. Medications Name Sig Start Date Stop Date Status Note LastModified by Organization Details LastModified Time meloxicam 15 mg tablet TAKE 1 TABLET BY MOUTH EVERY DAY active Not Available Not Available No t Available sertraline 100 mg tablet TAKE 1 TABLET BY MOUTH EVERY DAY active Not Available Not Available No t Available benzonatate 100 mg capsule TAKE 1 CAPSULE BY MOUTH THREE TIMES A DAY active Not Available Not Available No t Available losartan 25 mg tablet TAKE 1 TABLET BY MOUTH DAILY active Not Available Not Available No t Available hydrochloroth iazide 12.5 mg capsule TAKE 1 CAPSULE BY MOUTH DAILY active Not Available Not Available No t Available fluticasone propionate 50 mcg/actuation nasal spray,suspens ion INSTILL 1 SPRAY INTO BOTH NOSTRILS ONCE DAILY active Not Available Not Available N ot Available Ventolin HFA 90 mcg/actuation aerosol inhaler INHALE 2 PUFFS EVERY 6 HOURS NEEDED FOR SHORTNESS OF BREATH OR WHEEZING active Not Available Not Available No t Available cyclobenzapri ne 5 mg tablet TAKE 1 TABLET BY MOUTH EVERY DAY AT BEDTIME active Not Available Not Available N ot Available rosuvastatin 5 mg tablet TAKE 1 TABLET BY MOUTH DAILY active Not Available Not Available No t Available rosuvastatin 10 mg tablet TAKE 1 TABLET BY MOUTH EVERY DAY active Not Available Not Available No t Available Vitals Date Recorded Body height Body mass index (BMI) Body weight Provider Name and Address Organization Details Last Updated DateTime 09/30/2024 170.18 cm 35.4 kg/m2 020933.88 g Mariaelena Serrano [facility] 09/30/2024 09:01:39 Social History None recorded. Functional Status None recorded. Mental Status None recorded. Family History Nothing Reported. Medical History No medical history recorded. Past Encounters Encounter ID Performer Location Encounter Start Date Encounter Closed Date Diagnosis/Indication Diagnosis SNOMED-CT Code Diagnosis ICD10 Code Diagnosis IMO Codes Diagnosis Note [id number] NERI JACK MD [facility] [address] [address] 09/30/2024 08:39:59 09/30/2024 09:26:32 Sensory disorder of smell and/or taste 6176283435 103 R43.9 Exam was normal. Nasal endo was negative for purulence and polyps. CT was negative for sinusitis. 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 I suggested and reviewed smell retraining therapy which he will try. I stressed the importance of looking at food labels to make sure not and I stressed the importance of making sure smoke detectors work. No indication for MRI since this began after a URI. Dental caries 73327635 K 02.9 I personally reviwed his CT sinus report. No sinusitis seen. I suggested he see his dentist given the maxillary bony changes. He agreed to do so. Health Concerns Section Related Observation LastModified by Organization Detai ls LastModified Time None Recorded Concern Status LastModified by Organization Details LastModified Time None Recorded Advance Directives Directive None Recorded Payers Insurance Date Sequence Insurance Name Policy Number Policy Rae Covered Member ID Rae Member ID Guarantor Name 09/30/2024 1 MEDICARE B-[place]: [employer] Ambrose Leslie [id number] Ambrose Leslie 09/30/2024 1 MEDICARE B-[place]: [employer]ATIONAL [employer]MENT [employer] Ambrose Leslie [id number] Ambrose Leslie 09/30/2024 1 [facility] (MEDICAID HMO) [id number] Ambrose Leslie [id number] Ambrose Leslie 09/30/2024 1 [facility] (HMO) [id number] Ambrose Leslie [id number] Ambrose Leslie Notes Date Note Type Note Provider Name and Address Organization Details Recorded Time 09/30/2024 text/html ROS as noted in the HPI He reports problems with sense of smell and taste for 1 year. It began after a URI when he was travelling in [place]. Covid was negative but he says it was a severe infection. He currently can't really smell or taste anything at all except he reports certain vegetable like parsley taste unpleasant like ammonia. He had a recent CT at [facility] was negative for sinusitis but did show old, possibly chronic dental maxillary bony changes. He has tried flonase. He has not been treated for sinusitis. NERI JACK MD [address] [place] [address], [place], [address], [facility] - [facility] 09/30/2024 09:27:25
--- OUTSIDE RECORDS SUMMARY | 2025-07-28 08:51 | XMS_ITS | Clinical Summary ---
Author Organization [employer] [facility] ity Address [address] [place] [address] Care Team Providers Care Straightedge Worker Name Role Phone Unavailable Primary Care Provider Unavailabl e Social History Tobacco Use Types Packs/Day Years Used Date Smoking Tobacco: Never Assessed Sex and Gender Information Value Date Recorded Sex Assigned at Not on file Legal Sex Male 2:56 PM EST Gender Identity Not on file Sexual Orientation Not on file Plan of Treatment Health Maintenance Due Date Last Done Comments Colorectal Cancer Screening: Colonoscopy 1971 DTaP,Tdap,and Td Vaccines (1 - Tdap) 1990 Hepatitis B Vaccines (1 of 3 - 19+ 3-dose series) 1990 Pneumococcal Vaccine: 50+ Ye ars (1 of 1 - PCV) 2021 Zoster Vaccines (1 of 2) 2021 Cholesterol Screening (Lipid Panel) 02/25/2024 HIV Screening 02/25/2024 Hepatitis C Screening 02/25/2024 Social Influencers of Health Screening 02/25/2024 Depression Screening 08/05/2024 COVID-19 Vaccine (1 - 2024-2 6 season) 2025 Influenza Vaccine (#1) 2025 RSV Immunization Adult Patie nts (1 - 1-dose 75+ series) 2046 HIB Vaccines Aged Out No longer eligi [...] age to complete this topic Meningococcal B Vaccine Aged Out No l onger eligible based on patient's age to complete this topic RSV Immunization Patients Un eric 20 months Aged Out No longer eligible b ased on patient's age to complete this topic Varicella Vaccines Aged Out No longer eligible based on patient's age to complete this topic
== END ==
LOC: HO.HMCH 08:49
PROVIDERS: PCP Internal Medicine; Visit Provider Internal Medicine
DX: F41.1 Generalized anxiety disorder (principal); I10 Essential (primary) hypertension

== ENCOUNTER 2025-08-04 10:26 | Outpatient (AMB) | payer OTHER, SELFPAY ==
--- NOTE | 2025-08-04 10:48 | MHC.PC.OV ---
Vital Signs 08/04/25 10:49 Height 5 ft 8 in Weight 210 lb 6 oz BMI 32.0 BP 136/84 Blood Pressure Location Lt brachial Position Sitting Pulse 102 H Pulse Source Pulse Oximeter Temp 97.3 F Temp Source Temporal Artery Scan Pulse Oximetry (%) 98 Oxygen Delivery Method Room Air Intake Visit Reasons: 1 week f/u - see comments Lightning Protection Installer Required: Yes Lightning Protection Installer Language: Khmer Information Interpreted: non-clinical & clinical Director Of Patient Care: Not Required per policy Accompanied by: Self / Same As Patient Allergies No Known Allergies Allergy (Verified 08/06/25 09:51) Medication List - Last Reconciled 08/06/25 by Brock Dougherty MD acetaminophen 1,000 mg (2 x 500 mg) PO Q6H PRN atorvastatin 10 mg PO BEDTIME blood pressure monitor As directed blood pressure monitor As directed bupropion HCl XL (Wellbutrin XL) 300 mg (2 x 150 mg) PO QAM cholecalciferol (vitamin D3) 25 mcg PO DAILY hydrochlorothiazide 12.5 mg PO DAILY hydroxyzine HCl 50 mg (2 x 25 mg) PO TID PRN losartan 25 mg PO DAILY meclizine 25 mg PO DAILY PRN meloxicam 15 mg PO DAILY metronidazole 1% (Metrogel) 1 appl topical BEDTIME psyllium husk (with sugar) 2.5 gram (Metamucil Fiber Thin) 2 wafers PO DAILY quetiapine (Seroquel) 100 mg PO BEDTIME Tobacco use date assessed: 08/04/25 Dental Screening Dental Screen Date: 07/28/25 HPI HPI Comments History of Present Illness Details History of Present Illness - The patient is a 55 year old male presenting for follow-up on chronic conditions, medication management, and a new facial rash. - He confirms taking atorvastatin for cholesterol, bupropion 300 mg, hydrochlorothiazide and losartan for blood pressure, hydroxyzine as needed for anxiety, and Seroquel as needed at bedtime. - The patient reports chronic back pain and had imaging performed in [place], which was described as showing severe degenerative changes with bone with bone contact. - He also reports associated leg numbness. - He missed a scheduled appointment for an injection for his back pain due to his mother's . - He has a history of hospitalization for depression and is currently unemployed. - The patient reports a facial rash that occurs almost weekly, lasting two to three days, characterized by white pimples, itching, and subsequent dry skin. - For preventative care, his last colonoscopy was five years ago and he is due for another. Social History - The patient is currently unemployed but expresses a desire to work. - The patient reports he has forms for job training and possible financial assistance, which he plans to bring to the clinic. Results - Labs: Recent blood work, including cholesterol, was reviewed and is good. - Imaging: Patient reports a history of back imaging from [facility] which showed severe degenerative changes described as bone with bone. [facility] Medical History Anosmia Class 2 severe obesity with body mass index (BMI) of 35 to 39.9 with serious comorbidity Moderate major depression, single episode Disc degeneration, lumbar Borderline hypertension Cough with exposure to COVID-19 virus Surgical History H/O colonoscopy (~06/14/22) History of pneumothorax Family History Mother Diabetes Hypertension Rheumatoid arthritis Father Dementia Cancer Maternal Grandfather Prostate CA Maternal Aunt Stomach cancer Social History Housing: House Alcohol intake: current Alcohol intake frequency: a few times a week Alcohol type: beer Patient Tobacco Use Status: Current someday Tobacco user Tobacco use type: Cigarette Cigarette Packs Per Day: 0.5 Cigarettes Per Day: 5 Years Smoked: 3 e-Cigarette/Vaping Use: Never Used Second Hand Smoke Exposure: Yes service: No Current occupational status: unemployed Cognitive needs: No Hearing needs: No Vision needs: Yes (glasses) Questionnaire PHQ-9 Over the last 2 weeks, how often have you been bothered by any of the following problems? 1. Little interest or pleasure in doing things: more than half the days 2. Feeling down, depressed, or hopeless: more than half the days 3. Trouble falling or staying asleep, or sleeping too much: more than half the days 4. Feeling tired or having little energy: more than half the days 5. Poor appetite or overeating: more than half the days 6. Feeling bad about yourself - or that you are a failure or have let yourself or your family down: more than half the days 7. Trouble concentrating on things, such as reading the newspaper or watching television: more than half the days 8. Moving or speaking so slowly that other people could have noticed. Or the opposite - being so fidgety or restless that you have been moving around a lot more than usual: more than half the days 9. Thoughts that you would be better off or of hurting yourself in some way: not at all Total score: 16 Depression Screening Interpretation: Positive Depression Screening Done: Yes Source: Developed by Drs. Amari Ruelas, Abbie Bella, Barrie Hopkins and colleagues, with an educational aspen from [employer]. Thrive Questionnaire Date Thrive assessed: 08/04/25 I am a: Patient What is your living situation today?: I have a place to live, but I am worried about losing it in the future Within the past 12 months, did the food you bought not last and you didn't have the money to get more?: Sometimes True Within the past 12 months, did you worry whether your food would run out before you got money to buy more?: I choose not to answer this question Do you have trouble paying for medicines?: Yes Do you have trouble getting transportation to medical appointments?: No Do you have trouble paying your heating and electricity bill?: Yes Do you have trouble taking care of your child, family member or friend?: No Do you have trouble with day-to-day activities such as bathing, preparing meals, shopping, managing finances, etc.?: No Are you currently unemployed and looking for a job?: Yes Are you interested in more education?: Yes Please select the resources that you would like help with: Job search/training Currently or been in a relationship where the following occur: I choose not to answer THRIVE Score: 3 AUDIT C Alcohol Use Questionnaire (AUDIT-C) 1. How often do you have a drink containing alcohol?: 2-3 times a week 2. How many drinks containing alcohol do you have on a typical day when you are drinking?: 3 or 4 3. How often do you have six or more drinks on one occasion?: Weekly Total Score: 7 BRENDA-7 AMB Questionnaire BRENDA-7 Date BRENDA - 7 assessed: 08/04/25 Feeling nervous, anxious, or on edge: 1 = Several days Not being able to stop or control worryin = More than half the days Worrying too much about different things: 2 = More than half the days Trouble relaxin = More than half the days Being so restless that it is hard to sit still: 2 = More than half the days Becoming easily annoyed or irritable: 2 = More than half the days Feeling afraid as if something awful might happen: 1 = Several days Total BRENDA-7 score (0-4 normal; 5-9 mild; 10-14 moderate; 15-21 severe): 12 Source: Developed by Drs. Amari Ruelas, Abbie Bella, Barrie Hopkins and colleagues, with an educational aspen from [employer]. Review of Systems Narrative Review of Systems - Musculoskeletal: Reports chronic back pain. - Neurological: Reports intermittent leg numbness. - Dermatologic: Reports a recurrent facial rash with white papules, pruritus, and subsequent xerosis. Physical exam (Primary Care) Vital Signs: Last Vital Signs Temp 97.3 F 08/04/25 10:49 Pulse 102 H 08/04/25 10:49 BP 136/84 08/04/25 10:49 Pulse Ox 98 08/04/25 10:49 Oxygen Delivery Method Room Air 08/04/25 10:49 BMI result Body Mass Index 32.0 Tobacco/Smoking Status: Tobacco use Status Tobacco use date assessed 08/04/25 08/04/25 10:49 Patient Tobacco Use Status Current someday Tobacco 08/04/25 10:49 Tobacco use type Cigarette 08/04/25 10:49 e-Cigarette/Vaping Use Never Used 08/04/25 10:49 PHQ-9: PHQ-9 Score PHQ-9: Total score 16 08/04/25 10:49 Depression Screening Interpretation: Positive Thrive Assessment: Date of Thrive Assessment Date Thrive assessed 08/04/25 08/04/25 10:49 Currently or been in a relationship where the following occur: I choose not to answer Narrative Physical Exam General: Appearance normal, both eyes and all related structures Nutritional Appearance: Well nourished Orientation/consciousness: Patient oriented x3 Limitations: Patient reports back pain and occasional leg numbness Head: Normal to inspection Neck: Normal visual inspection Chest: Normal palpation of entire chest wall Respiratory: Normal respiratory effort, no pain reported Neurology: Patient oriented x3, reports occasional leg numbness Coding Level of Care Code Est Pt Level 4 (52704) Add On Problem Visit Only Diagnoses Moderate major depression, single episode F32.1 Class 2 severe obesity with body mass index (BMI) of 35 to 39.9 with serious comorbidity E66.812; E66.01 Assessment & Plan Assessment & Plan (1) Moderate major depression, single episode: Code(s): F32.1 - Major depressive disorder, single episode, moderate Category: Medical (2) Class 2 severe obesity with body mass index (BMI) of 35 to 39.9 with serious comorbidity: Code(s): E66.812 - Obesity, class 2; E66.01 - Morbid (severe) obesity due to excess calories Category: Medical Plan Plan - A prescription for a facial cream was sent to the pharmacy to be used at bedtime for the rash. - The patient was advised to call and reschedule his appointment for a back injection. - A referral to physical therapy will be made for chronic back pain. - The patient was reminded that he is due for a colonoscopy. - The patient will continue his current medications for hypertension, hyperlipidemia, and psychiatric conditions. - Recommended follow-up in six months. Discussion Notes I informed the patient that his recent blood work is good. We discussed management for his facial rash, and I have sent a prescription for a cream to be used at bedtime. For his chronic back pain, I am referring him to physical therapy and advised him to call to reschedule his appointment for a back injection. We also reviewed that he is due for a colonoscopy. I advised him to follow up in six months. Patient Instructions - Your recent blood work looks good. - I have sent a prescription for a cream to [facility] for your facial rash; please apply it at bedtime. - I am referring you to physical therapy for your back pain. - Please call the specialist's office to reschedule the appointment for the injection in your back. - Remember to schedule your colonoscopy, as you are due for one. - You can bring your assistance forms to the office on Saturday. - Please schedule a follow-up appointment to see me in six months. Orders: Orders PT Evaluation and Treatment 08/04/25 M54.50 - Low back pain, unspecified Referrals Gastroenterology Referral Z12.11 - Encounter for screening for malignant neoplasm of colon Medications: New metronidazole 1% (Metrogel) 1 appl topical BEDTIME 60 grams 0RF
[2025-08-04 10:49] VITALS: BP 136/84; PULSE 102; TEMP 36.3; O2SAT 98; BMI 32.0
--- OUTSIDE RECORDS SUMMARY | 2025-08-04 11:40 | XMS_ITS | Clinical Summary ---
Author Organization [employer] [facility] ity Address [address] [place] [address] Care Team Providers Care Senior Paralegal Name Role Phone Unavailable Primary Care Provider [...]
--- OUTSIDE RECORDS SUMMARY | 2025-08-04 11:40 | XMS_ITS | Data Portability ---
Author Organization [place] - [facility], Allergy Address [address] [address] Care Team Providers Care User Experience Manager Name Role Phone JOHN STEVENS Primary Care [...] contr ast No observ ation record ed. [facility] (Medical Records) [address] [place] [address], [id number], 09/30/2024 11:23:14 09/30/1909/25/2024 CT, sinus es, w/o contr ast No observ ation record ed. [email or web address] Not Available 09/06 14:56:50 Result Notes None recorded. Problems Name Problem SNOMED Code Status Onset Date Resolution Date Notes Provider Name and Address Organization Details Recorded Time Sensory disorder of smell and/or taste 2180650195212 Active 2024 NERI Rodrigues MD [address], [address] [place] [facility] 09:16:12 Dental caries 11588025 Active 2024 NERI Rodrigues MD 100 [facility] 100, [place], [address], [facility] 09:24:56 Problem Notes None recorded. Procedures Surgical History Date Name Laterality Status Provider Name and Address Organization Details Recorded Time 09/30/2024 NasalEndos copy_DP completed NERI JACK MD 100 [facility] 100, [place], [address], [facility] 09/30/2024 09:26:53 Imaging Results None recorded. [...] Updated DateTime 09/30/2024 170.18 cm 35.4 kg/m2 259540.88 g Mariaelena Serrano [facility] 09/30/2024 09:01:39 Social History None recorded. Functional Status None recorded. Mental Status None recorded. Family History Nothing Reported. Medical History No medical history recorded. Past Encounters Encounter ID Performer Location Encounter Start Date Encounter Closed Date Diagnosis/Indication Diagnosis SNOMED-CT Code Diagnosis ICD10 Code Diagnosis IMO Codes Diagnosis Note [id number] NERI JACK MD [facility] [address] [address] 09/30/2024 08:39:59 09/30/2024 09:26:32 Sensory disorder of smell and/or taste 0415307862 103 R43.9 Exam was normal. Nasal endo [...] this began after a URI. Dental caries 72912075 K 02.9 [address] personally reviwed his CT [...] Member ID Guarantor Name 09/30/2024 1 [place] [employer] Ambrose Leslie [id number] 1 Ambrose Leslie 09/30/2024 1 [place] [employer] Ambrose Leslie [id number] Ambrose Leslie 09/30/2024 1 [facility] (MEDICAID HMO) [id number] Ambrose Leslie [id number] Ambrose Leslie 09/30/2024 1 [facility] (HMO) [id number] Ambrose Leslie [id number] Ambrose Leslie Notes Date Note Type Note Provider Name and Address Organization Details Recorded Time 09/30/2024 text/html ROS as noted in the HPI He reports problems with sense of smell and taste for 1 year. It began after a URI when he was travelling in [place]. Covid was negative but he says it was a severe infection. He currently can't really smell or taste anything at all except he reports certain vegetable like parsley taste unpleasant like ammonia. He had a recent CT at [facility] was negative for sinusitis but did show old, possibly chronic dental maxillary bony changes. He has tried flonase. He has not been treated for sinusitis. NERI JACK MD [address] [place] [address], [place], [address], [facility] - [facility] 09/30/2024 09:27:25
== END 2025-08-04 12:30 | disposition home or self-care (01) ==
LOC: HO.HMCH 10:26
PROVIDERS: PCP Internal Medicine; Visit Provider Internal Medicine
DX: F32.1 Major depressive disorder, single episode, moderate (principal); E66.812 Obesity, class 2; E66.01 Morbid (severe) obesity due to excess calories